=== PATIENT | female | born 1965 | race Caucasian/White ===

== ENCOUNTER 2017-01-10 13:31 | Inpatient (IN) | payer MEDICARE, MEDICAID ==
[~2017-01-10] VITALS: Ht 160 cm; Wt 77.6 kg
[2017-01-10] MEDS ORDERED: ZOLP5 PO (13:41)
[2017-01-10] MEDS ORDERED: BUPR75 PO (13:41)
[2017-01-10] MEDS ORDERED: ALPR0.5T8 PO (13:41)
[2017-01-10] MEDS ORDERED: ADDE10 PO (13:41)
[2017-01-10] MEDS ORDERED: CLON1 PO (13:41)
[2017-01-10] MEDS ORDERED: FluPHENAZine HCL 2.5 MG/ML INJ IM ONE (14:00)
[2017-01-10] MEDS ORDERED: DiphenhydrAMINE HCL 50 MG/ML VIAL IM ONE (14:00)
[2017-01-10] MEDS ORDERED: LORazepam 2 MG/ML VIAL IM ONE (14:00)
[2017-01-10] MEDS ORDERED: ACETAMINOPHEN 325 MG TABLET PO PRN (15:00)
[2017-01-10] MEDS ORDERED: MAG HYDROX/AL HYDROX/SIMETH ES 30 ML SUSPENSION UDCUP PO PRN (15:00)
[2017-01-10] MEDS ORDERED: PROMETHAZINE HCL 25 MG TABLET PO PRN (15:00)
[2017-01-10] MEDS ORDERED: MAGNESIUM HYDROXIDE SUSPENSION 30 ML UDCUP PO PRN (15:00)
[2017-01-10] MEDS ORDERED: TUBERCULIN, PURIFIED PROTEIN DERIVATIVE 5 TU/0.1 ML SYG ID ONE (15:00)
[2017-01-10] MEDS ORDERED: GuaiFENesin/D-METHORPHAN [SUGAR-FREE] 200-20MG/10 ML SYRUP UDCUP PO PRN (15:00)
[2017-01-10] MEDS ORDERED: LOPERAMIDE HCL 2 MG CAPSULE PO PRN (15:00)
[2017-01-10] MEDS ORDERED: ZOLPIDEM TARTRATE 10 MG TABLET PO PRN (15:00)
[2017-01-10 16:19] LABS: APPEARANCE,URINE CLOUDY (CLEAR); GLUCOSE, URINE (UA) NEGATIVE (NEGATIVE); KETONES,URINE NEGATIVE (NEGATIVE); LEUKOCYTE ESTERASE ,URINE NEGATIVE (NEGATIVE); OCCULT BLOOD,URINE NEGATIVE (NEGATIVE); PH,URINE 5.5 (5.0-8.0); PROTEIN,URINE NEGATIVE (NEGATIVE)
[2017-01-10 16:20] LABS: ADD UA MICROSCOPIC NO
[2017-01-10] MEDS: THIAMINE HCL 100 MG TABLET PO SCH (17:27)
[2017-01-10 17:37] VITALS: BP 116/91
[2017-01-10] MEDS ORDERED: IBUPROFEN 600 MG TABLET PO PRN (18:30)
[2017-01-10] MEDS ORDERED: INFLUENZA VIRUS VACCINE QVS 2017-18 (3YR+)/PF 60 MCG/0.5 ML SYRINGE IM ONE (19:00)
[2017-01-10] MEDS: OLANZapine 5 MG RAPDIS TABLET PO SCH (21:03)
[2017-01-11] MEDS: MULTIVITAMINS WITH MINERALS, THERAPEUTIC TABLET PO SCH (08:34)
[2017-01-11] MEDS: NICOTINE 21 MG/24 HOUR PATCH TD SCH (08:34)
[2017-01-11] MEDS: FOLIC ACID 1 MG TABLET PO SCH (08:34)
[2017-01-11] MEDS: THIAMINE HCL 100 MG TABLET PO SCH ×2 (08:34→16:21)
[2017-01-11] MEDS: LORazepam 2 MG TABLET PO PRN (10:06)
[2017-01-11] MEDS ORDERED: NICOTINE 21 MG/24 HOUR PATCH TD SCH (10:30)
[2017-01-11 17:33] VITALS: BP 165/103
[2017-01-11] MEDS ORDERED: CloNIDine HCL 0.1 MG TABLET PO ONE (17:45)
[2017-01-11 18:35] VITALS: BP 119/77
[2017-01-11] MEDS: OLANZapine 5 MG RAPDIS TABLET PO SCH (20:15)
[2017-01-12 06:35] VITALS: BP 138/91
[2017-01-12] MEDS: LORazepam 2 MG TABLET PO PRN ×2 (06:59→12:10)
[2017-01-12 08:41] LABS: BASOPHILS % (AUTO) 0.5 % (0.0-2.0); HEMATOCRIT 42.4 % (36-46); HEMOGLOBIN 14.3 g/dL (12.0-16.0); LYMPHOCYTES # (AUTO) 1.8 K/uL (1.0-4.8); MEAN CORPUSCULAR HEMOGLOBIN 30.1 pg (26.0-34.0); MEAN CORPUSCULAR HGB CONC 33.7 G/dL (31.0-37.0); MEAN CORPUSCULAR VOLUME 89 fL (80-100); MONOCYTES # (AUTO) 0.3 K/uL (0.1-1.0); MONOCYTES % (AUTO) 5.9 % (2.0-9.0); NEUTROPHILS # (AUTO) 2.8 K/uL (1.8-7.7); NEUTROPHILS % (AUTO) 56.6 % (40.0-70.0); PLATELET COUNT (AUTO) 259 K/uL (150-450); RED BLOOD CELL COUNT(AUTO) 4.75 MIL/uL (4.00-5.20); RED CELL DISTRIBUTION WIDTH 14.4 % (11.5-14.5)
[2017-01-12 08:54] LABS: HEMOGLOBIN A1C 5.8 % (4.5-6.2)
[2017-01-12] MEDS: FOLIC ACID 1 MG TABLET PO SCH ×2 (09:00→11:54)
[2017-01-12] MEDS: NICOTINE 21 MG/24 HOUR PATCH TD SCH ×2 (09:00→10:15)
[2017-01-12] MEDS: THIAMINE HCL 100 MG TABLET PO SCH ×3 (09:00→16:05)
[2017-01-12] MEDS: MULTIVITAMINS WITH MINERALS, THERAPEUTIC TABLET PO SCH ×2 (09:00→11:55)
[2017-01-12] MEDS: CloNIDine HCL 0.1 MG TABLET PO SCH ×3 (09:00→16:53)
[2017-01-12 09:21] LABS: ALANINE AMINOTRANSFERASE 35 U/L (12-78); ALBUMIN 3.4 g/dL (3.4-5.0); ANION GAP 4 mmol/L (8-16); ASPARTATE AMINOTRANSFERASE 24 U/L (15-37); BILIRUBIN,TOTAL 0.4 mg/dL (0.1-1.0); CALCIUM, TOTAL 8.7 mg/dL (8.8-10.5); CARBON DIOXIDE 33 mmol/L (22-29); CHLORIDE 102 mmol/L (98-107); CHOL/HDL RATIO 3.3 (3.9-5.7); CREATININE 0.66 mg/dL (0.60-1.30); GLOMERULAR FILTR. RATE CALC > 60 mL/min (>60); POTASSIUM 3.7 mmol/L (3.5-5.1); SODIUM SERUM 139 mmol/L (136-145); THYROID STIMULATING HORMONE 1.18 uIU/mL (0.36-3.74); TOTAL PROTEIN, SERUM 6.9 g/dL (6.4-8.2); UREA NITROGEN, BLOOD 12 mg/dL (7-18)
[2017-01-12 11:30] VITALS: BP 128/74
[2017-01-12] MEDS: ARIPiprazole 10 MG TABLET PO SCH (11:46)
[2017-01-12 16:52] VITALS: BP 114/81
[2017-01-12 20:20] VITALS: BP 100/58
[2017-01-12] MEDS: PRAZOSIN HCL 1 MG CAPSULE PO SCH (20:20)
[2017-01-13 07:08] VITALS: BP 112/70
[2017-01-13] MEDS: CloNIDine HCL 0.1 MG TABLET PO SCH ×2 (08:20→16:12)
[2017-01-13] MEDS: ARIPiprazole 10 MG TABLET PO SCH (08:20)
[2017-01-13] MEDS: MULTIVITAMINS WITH MINERALS, THERAPEUTIC TABLET PO SCH (08:20)
[2017-01-13] MEDS: FOLIC ACID 1 MG TABLET PO SCH (08:20)
[2017-01-13] MEDS: HydrOXYzine PAMOATE 50 MG CAPSULE PO PRN (08:20)
[2017-01-13] MEDS: THIAMINE HCL 100 MG TABLET PO SCH ×2 (08:21→16:12)
[2017-01-13] MEDS: LORazepam 2 MG TABLET PO PRN (08:21)
[2017-01-13] MEDS: NICOTINE 21 MG/24 HOUR PATCH TD SCH (08:21)
[2017-01-13 08:26] VITALS: BP 130/87
[2017-01-13 16:10] VITALS: BP 109/64
[2017-01-13] MEDS: PRAZOSIN HCL 1 MG CAPSULE PO SCH (20:40)
[2017-01-14] MEDS: CloNIDine HCL 0.1 MG TABLET PO SCH (09:36)
[2017-01-14] MEDS: ARIPiprazole 10 MG TABLET PO SCH (09:36)
[2017-01-14] MEDS: NICOTINE 21 MG/24 HOUR PATCH TD SCH (09:37)
[2017-01-14] MEDS: THIAMINE HCL 100 MG TABLET PO SCH ×2 (09:37→17:03)
[2017-01-14] MEDS: FOLIC ACID 1 MG TABLET PO SCH (09:37)
[2017-01-14] MEDS: MULTIVITAMINS WITH MINERALS, THERAPEUTIC TABLET PO SCH (09:37)
[2017-01-14] MEDS: LORazepam 2 MG TABLET PO PRN (12:35)
[2017-01-14] MEDS: HydrOXYzine PAMOATE 50 MG CAPSULE PO PRN (12:35)
[2017-01-14 16:08] VITALS: BP 109/60
[2017-01-14 20:41] VITALS: BP 117/63
[2017-01-14] MEDS: PRAZOSIN HCL 1 MG CAPSULE PO SCH (20:42)
[2017-01-15] MEDS: HydrOXYzine PAMOATE 50 MG CAPSULE PO PRN (08:06)
[2017-01-15] MEDS: NICOTINE 21 MG/24 HOUR PATCH TD SCH (08:06)
[2017-01-15] MEDS: MULTIVITAMINS WITH MINERALS, THERAPEUTIC TABLET PO SCH (08:06)
[2017-01-15] MEDS: ARIPiprazole 10 MG TABLET PO SCH (08:06)
[2017-01-15] MEDS: LORazepam 2 MG TABLET PO PRN ×2 (08:06→16:22)
[2017-01-15] MEDS: FOLIC ACID 1 MG TABLET PO SCH (08:06)
[2017-01-15] MEDS: THIAMINE HCL 100 MG TABLET PO SCH ×2 (08:06→16:22)
[2017-01-15 09:00] VITALS: BP 118/78
[2017-01-15 16:00] VITALS: BP 108/71
[2017-01-15] MEDS: PRAZOSIN HCL 1 MG CAPSULE PO SCH (20:25)
[2017-01-16 07:24] VITALS: BP 110/70
[2017-01-16] MEDS: THIAMINE HCL 100 MG TABLET PO SCH ×2 (08:27→16:11)
[2017-01-16] MEDS: FOLIC ACID 1 MG TABLET PO SCH (08:27)
[2017-01-16] MEDS: MULTIVITAMINS WITH MINERALS, THERAPEUTIC TABLET PO SCH (08:27)
[2017-01-16] MEDS: ARIPiprazole 10 MG TABLET PO SCH (08:27)
[2017-01-16] MEDS: OLANZapine 5 MG RAPDIS TABLET PO PRN (08:27)
[2017-01-16] MEDS: NICOTINE 21 MG/24 HOUR PATCH TD SCH (08:27)
[2017-01-16] MEDS: LORazepam 2 MG TABLET PO PRN (08:27)
[2017-01-16 09:44] VITALS: BP 110/70
[2017-01-16 16:44] VITALS: BP 100/71
[2017-01-16 19:54] VITALS: BP 113/69
[2017-01-16] MEDS: PRAZOSIN HCL 1 MG CAPSULE PO SCH (20:03)
[2017-01-17 08:51] VITALS: BP 120/80
[2017-01-17] MEDS ORDERED: ZIPRASIDONE MESYLATE 20 MG/VIAL IM ONE ×2 (10:31→11:00)
[2017-01-17] MEDS ORDERED: DiphenhydrAMINE HCL 50 MG/ML VIAL ONE (10:31)
[2017-01-17] MEDS ORDERED: LORazepam 2 MG/ML VIAL ONE ×2 (10:32→10:41)
[2017-01-17] MEDS: ARIPiprazole 10 MG TABLET PO SCH (10:48)
[2017-01-17] MEDS: FOLIC ACID 1 MG TABLET PO SCH (10:48)
[2017-01-17] MEDS: MULTIVITAMINS WITH MINERALS, THERAPEUTIC TABLET PO SCH (10:48)
[2017-01-17] MEDS: THIAMINE HCL 100 MG TABLET PO SCH ×2 (10:48→17:09)
[2017-01-17] MEDS: NICOTINE 21 MG/24 HOUR PATCH TD SCH (10:49)
[2017-01-17] MEDS ORDERED: DiphenhydrAMINE HCL 50 MG/ML VIAL IM ONE (11:00)
[2017-01-17] MEDS ORDERED: LORazepam 2 MG/ML VIAL IM ONE (11:00)
[2017-01-17 11:30] VITALS: BP 129/78
[2017-01-17 16:34] VITALS: BP 105/70
[2017-01-17] MEDS: LORazepam 2 MG TABLET PO PRN (17:09)
[2017-01-17] MEDS: OLANZapine 5 MG RAPDIS TABLET PO PRN (17:09)
[2017-01-17 20:35] VITALS: BP 110/71
[2017-01-17] MEDS: PRAZOSIN HCL 1 MG CAPSULE PO SCH (20:36)
[2017-01-18 08:24] VITALS: BP 128/95
[2017-01-18] MEDS: FOLIC ACID 1 MG TABLET PO SCH (08:45)
[2017-01-18] MEDS: NICOTINE 21 MG/24 HOUR PATCH TD SCH (08:45)
[2017-01-18] MEDS: ARIPiprazole 10 MG TABLET PO SCH (08:45)
[2017-01-18] MEDS: THIAMINE HCL 100 MG TABLET PO SCH ×2 (08:45→17:05)
[2017-01-18] MEDS: MULTIVITAMINS WITH MINERALS, THERAPEUTIC TABLET PO SCH (08:46)
[2017-01-18 16:35] VITALS: BP 118/69
[2017-01-18] MEDS: LORazepam 2 MG TABLET PO PRN (17:05)
[2017-01-18] MEDS: OLANZapine 5 MG RAPDIS TABLET PO PRN (17:05)
[2017-01-18] MEDS: PRAZOSIN HCL 1 MG CAPSULE PO SCH (21:29)
[2017-01-19 06:11] VITALS: BP 117/68
[2017-01-19 08:25] VITALS: BP 108/69
[2017-01-19] MEDS: THIAMINE HCL 100 MG TABLET PO SCH ×2 (09:08→16:23)
[2017-01-19] MEDS: FOLIC ACID 1 MG TABLET PO SCH (09:08)
[2017-01-19] MEDS: MULTIVITAMINS WITH MINERALS, THERAPEUTIC TABLET PO SCH (09:08)
[2017-01-19] MEDS: ARIPiprazole 10 MG TABLET PO SCH (09:08)
[2017-01-19] MEDS: NICOTINE 21 MG/24 HOUR PATCH TD SCH (09:15)
[2017-01-19 16:33] VITALS: BP 107/71
[2017-01-19 20:09] VITALS: BP 121/76
[2017-01-19] MEDS: PRAZOSIN HCL 1 MG CAPSULE PO SCH (20:26)
[2017-01-20 08:30] VITALS: BP 120/72
[2017-01-20] MEDS: FOLIC ACID 1 MG TABLET PO SCH (08:33)
[2017-01-20] MEDS: ARIPiprazole 10 MG TABLET PO SCH (08:33)
[2017-01-20] MEDS: NICOTINE 21 MG/24 HOUR PATCH TD SCH (08:33)
[2017-01-20] MEDS: THIAMINE HCL 100 MG TABLET PO SCH (08:33)
[2017-01-20] MEDS: MULTIVITAMINS WITH MINERALS, THERAPEUTIC TABLET PO SCH (08:33)
[2017-01-20] MEDS ORDERED: TUBERCULIN, PURIFIED PROTEIN DERIVATIVE 5 TU/0.1 ML SYG ID ONE (14:30)
[2017-01-20 16:26] VITALS: BP 107/68
[2017-01-20 20:22] VITALS: BP 105/70
[2017-01-20] MEDS: PRAZOSIN HCL 1 MG CAPSULE PO SCH (20:23)
[2017-01-21] MEDS: MULTIVITAMINS WITH MINERALS, THERAPEUTIC TABLET PO SCH (08:26)
[2017-01-21] MEDS: ARIPiprazole 10 MG TABLET PO SCH (08:26)
[2017-01-21] MEDS: NICOTINE 21 MG/24 HOUR PATCH TD SCH (08:29)
[2017-01-21 09:14] VITALS: BP 134/54
[2017-01-21] MEDS ORDERED: ARIP10TA8 PO (10:04)
[2017-01-21] MEDS ORDERED: PRAZ1 PO (10:04)
== END 2017-01-21 10:45 | disposition home or self-care (01) | DRG 885 ==
LOC: EMS 13:33 → B3A 15:10
PROVIDERS: ADMIT Psychiatry & Neurology Psychiatry
DX: F25.1 Schizoaffective disorder, depressive type (principal); Z59.0 Homelessness; F17.200 Nicotine dependence, unspecified, uncomplicated; F60.9 Personality disorder, unspecified; Z28.21 Immunization not carried out because of patient refusal; F43.10 Post-traumatic stress disorder, unspecified; F90.9 Attention-deficit hyperactivity disorder, unspecified type; Z65.3 Problems related to other legal circumstances; Z68.28 Body mass index [BMI] 28.0-28.9, adult; Z91.19 Patient's noncompliance with other medical treatment and regimen; F41.9 Anxiety disorder, unspecified; Z88.8 Allergy status to other drugs, medicaments and biological substances
CPT/HCPCS: 80307; 83036; 84439; 84443; 86592; 96372; 99285; J1200; J2060; J3486; J3490

== ENCOUNTER 2017-01-22 16:56 | Inpatient (IN) | payer MEDICARE, MEDICAID ==
[~2017-01-22] VITALS: Ht 157.5 cm; Wt 79.4 kg
[~2017-01-22 16:56] MED LIST: ARIP10TA8 PO; PRAZ1 PO
[2017-01-22] MEDS ORDERED: LORazepam 2 MG/ML VIAL IM ONE ×2 (17:15→19:45)
[2017-01-22] MEDS ORDERED: DiphenhydrAMINE HCL 50 MG/ML VIAL IM ONE ×2 (17:15→19:45)
[2017-01-22 17:39] LABS: BASOPHILS % (AUTO) 0.1 % (0.0-2.0); EOSINOPHILS % (AUTO) 2.4 % (1.0-6.0); HEMATOCRIT 41.2 % (36-46); HEMOGLOBIN 14.3 g/dL (12.0-16.0); LYMPHOCYTES # (AUTO) 3.6 K/uL (1.0-4.8); LYMPHOCYTES % (AUTO) 33.4 % (22.0-44.0); MEAN CORPUSCULAR HEMOGLOBIN 30.5 pg (26.0-34.0); MEAN CORPUSCULAR HGB CONC 34.8 G/dL (31.0-37.0); MEAN CORPUSCULAR VOLUME 88 fL (80-100); MONOCYTES # (AUTO) 0.5 K/uL (0.1-1.0); MONOCYTES % (AUTO) 4.5 % (2.0-9.0); NEUTROPHILS # (AUTO) 6.4 K/uL (1.8-7.7); NEUTROPHILS % (AUTO) 59.6 % (40.0-70.0); PLATELET COUNT (AUTO) 303 K/uL (150-450); RED BLOOD CELL COUNT(AUTO) 4.71 MIL/uL (4.00-5.20); WHITE BLOOD COUNT (AUTO) 10.8 K/uL (4.5-11.0)
[2017-01-22 18:05] LABS: ANION GAP 6 mmol/L (8-16); CALCIUM, TOTAL 9.2 mg/dL (8.8-10.5); CARBON DIOXIDE 30 mmol/L (22-29); CHLORIDE 101 mmol/L (98-107); CREATININE 0.76 mg/dL (0.60-1.30); GLOMERULAR FILTR. RATE CALC > 60 mL/min (>60); POTASSIUM 3.5 mmol/L (3.5-5.1); SODIUM SERUM 137 mmol/L (136-145); UREA NITROGEN, BLOOD 9 mg/dL (7-18)
[2017-01-22 18:11] LABS: ALANINE AMINOTRANSFERASE 25 U/L (12-78); ALBUMIN 3.9 g/dL (3.4-5.0); ASPARTATE AMINOTRANSFERASE 16 U/L (15-37); BILIRUBIN,TOTAL 0.4 mg/dL (0.1-1.0); TOTAL PROTEIN, SERUM 7.8 g/dL (6.4-8.2)
[2017-01-22] MEDS ORDERED: HALOPERIDOL 5 MG TABLET PO PRN (21:45)
[2017-01-22] MEDS ORDERED: ZIPRASIDONE MESYLATE 20 MG/VIAL IM ONE (21:45)
[2017-01-23 00:10] VITALS: BP 117/68
[2017-01-23] MEDS ORDERED: PNEUMOCOCCAL VACCINE POLYVALENT 0.5 ML VIAL [PPSV23] IM ONE (01:00)
[2017-01-23] MEDS ORDERED: INFLUENZA VIRUS VACCINE QVS 2017-18 (3YR+)/PF 60 MCG/0.5 ML SYRINGE IM ONE (01:00)
[2017-01-23] MEDS: LORazepam 2 MG TABLET PO PRN ×2 (05:30→15:54)
[2017-01-23 08:25] VITALS: BP 162/78
[2017-01-23] MEDS ORDERED: DiphenhydrAMINE HCL 50 MG/ML VIAL ONE (09:14)
[2017-01-23] MEDS ORDERED: LORazepam 2 MG/ML VIAL ONE (09:14)
[2017-01-23] MEDS ORDERED: DiphenhydrAMINE HCL 50 MG/ML VIAL IM ONE (09:30)
[2017-01-23] MEDS ORDERED: ZIPRASIDONE MESYLATE 20 MG/VIAL IM ONE (09:30)
[2017-01-23] MEDS ORDERED: LORazepam 2 MG/ML VIAL IM ONE (09:30)
[2017-01-23 10:00] VITALS: BP 122/76
[2017-01-23 16:05] VITALS: BP 107/60
[2017-01-23] MEDS: OLANZapine 7.5 MG TABLET PO SCH (21:08)
[2017-01-24 00:21] VITALS: BP 125/71
[2017-01-24] MEDS: ZOLPIDEM TARTRATE 10 MG TABLET PO PRN (00:22)
[2017-01-24] MEDS ORDERED: ZIPRASIDONE MESYLATE 20 MG/VIAL IM ONE ×3 (07:35→12:30)
[2017-01-24] MEDS ORDERED: LORazepam 2 MG/ML VIAL ONE (07:36)
[2017-01-24] MEDS ORDERED: DiphenhydrAMINE HCL 50 MG/ML VIAL ONE (07:36)
[2017-01-24] MEDS ORDERED: LORazepam 2 MG/ML VIAL IM ONE ×2 (07:45→12:30)
[2017-01-24] MEDS ORDERED: DiphenhydrAMINE HCL 50 MG/ML VIAL IM ONE ×2 (07:45→12:30)
[2017-01-24 08:08] LABS: CHOL/HDL RATIO 4.1 (3.9-5.7)
[2017-01-24] MEDS: OLANZapine 5 MG TABLET PO SCH (08:32)
[2017-01-24] MEDS: NICOTINE 21 MG/24 HOUR PATCH TD SCH (10:10)
[2017-01-24] MEDS: QUEtiapine FUMARATE 25 MG TABLET PO PRN (16:33)
[2017-01-24] MEDS: LORazepam 2 MG TABLET PO PRN (16:33)
[2017-01-24 20:17] VITALS: BP 118/73
[2017-01-24] MEDS: OLANZapine 7.5 MG TABLET PO SCH (20:18)
[2017-01-24] MEDS: PRAZOSIN HCL 1 MG CAPSULE PO SCH (20:19)
[2017-01-25 07:08] VITALS: BP 110/68
[2017-01-25 08:00] VITALS: BP 134/72
[2017-01-25] MEDS: OLANZapine 5 MG TABLET PO SCH (09:01)
[2017-01-25] MEDS: NICOTINE 21 MG/24 HOUR PATCH TD SCH (09:01)
[2017-01-25 16:02] VITALS: BP 119/72
[2017-01-25] MEDS: OLANZapine 7.5 MG TABLET PO SCH (20:38)
[2017-01-25] MEDS: PRAZOSIN HCL 1 MG CAPSULE PO SCH (20:38)
[2017-01-26 02:00] VITALS: BP 118/69
[2017-01-26] MEDS: ZOLPIDEM TARTRATE 10 MG TABLET PO PRN (02:07)
[2017-01-26 08:36] VITALS: BP 134/80
[2017-01-26] MEDS: NICOTINE 21 MG/24 HOUR PATCH TD SCH (09:13)
[2017-01-26] MEDS: LORazepam 2 MG TABLET PO PRN ×2 (09:13→16:09)
[2017-01-26] MEDS: OLANZapine 5 MG TABLET PO SCH (09:14)
[2017-01-26 16:10] VITALS: BP 113/65
[2017-01-26] MEDS: QUEtiapine FUMARATE 25 MG TABLET PO PRN (16:49)
[2017-01-26] MEDS: OLANZapine 7.5 MG TABLET PO SCH (20:29)
[2017-01-26 20:30] VITALS: BP 115/72
[2017-01-26] MEDS: PRAZOSIN HCL 1 MG CAPSULE PO SCH (20:34)
[2017-01-27 07:25] VITALS: BP 120/72
[2017-01-27] MEDS: OLANZapine 5 MG TABLET PO SCH (09:01)
[2017-01-27] MEDS: LORazepam 2 MG TABLET PO PRN (09:01)
[2017-01-27] MEDS: NICOTINE 21 MG/24 HOUR PATCH TD SCH (09:02)
[2017-01-27 16:13] VITALS: BP 106/68
[2017-01-27 20:21] VITALS: BP 113/80
[2017-01-27] MEDS: OLANZapine 7.5 MG TABLET PO SCH (20:22)
[2017-01-27] MEDS: PRAZOSIN HCL 1 MG CAPSULE PO SCH (20:22)
[2017-01-28 07:00] VITALS: BP 110/72
[2017-01-28] MEDS ORDERED: OLAN10TA3 PO (08:25)
[2017-01-28] MEDS ORDERED: OLAN5TAB2 PO (08:25)
[2017-01-28 08:41] VITALS: BP 104/52
[2017-01-28] MEDS: OLANZapine 5 MG TABLET PO SCH (08:49)
[2017-01-28] MEDS: NICOTINE 21 MG/24 HOUR PATCH TD SCH (08:50)
[2017-01-28] MEDS ORDERED: OLANZapine 5 MG TABLET PO SCH (09:00)
[2017-01-28] MEDS ORDERED: OLANZapine 7.5 MG TABLET PO SCH (21:00)
[2017-01-28] MEDS ORDERED: PRAZOSIN HCL 1 MG CAPSULE PO SCH (21:00)
== END 2017-01-28 13:15 | disposition home or self-care (01) | DRG 885 ==
LOC: EMS 16:59 → B3A 23:05
PROVIDERS: ADMIT Psychiatry & Neurology Child & Adolescent Psychiatry
DX: F25.1 Schizoaffective disorder, depressive type (principal); F12.10 Cannabis abuse, uncomplicated; F17.200 Nicotine dependence, unspecified, uncomplicated; F43.10 Post-traumatic stress disorder, unspecified; F98.8 Other specified behavioral and emotional disorders with onset usually occurring in childhood and adolescence; Z88.1 Allergy status to other antibiotic agents; Z88.8 Allergy status to other drugs, medicaments and biological substances; F60.3 Borderline personality disorder; Z28.21 Immunization not carried out because of patient refusal
CPT/HCPCS: 87081; 96372; 99285; G0480; J1200; J2060; J3486

== ENCOUNTER 2017-01-30 09:34 | Inpatient (IN) | payer MEDICARE, MEDICAID ==
[~2017-01-30] VITALS: Ht 160 cm; Wt 78.5 kg
[~2017-01-30 09:34] MED LIST changes: -ARIP10TA8 PO; +OLAN10TA3 PO; +OLAN5TAB2 PO
[2017-01-30 10:14] LABS: BASOPHILS % (AUTO) 0.4 % (0.0-2.0); EOSINOPHILS % (AUTO) 0.4 % (1.0-6.0); HEMATOCRIT 40.2 % (36-46); HEMOGLOBIN 13.8 g/dL (12.0-16.0); LYMPHOCYTES # (AUTO) 2.7 K/uL (1.0-4.8); LYMPHOCYTES % (AUTO) 35.5 % (22.0-44.0); MEAN CORPUSCULAR HEMOGLOBIN 30.3 pg (26.0-34.0); MEAN CORPUSCULAR HGB CONC 34.4 G/dL (31.0-37.0); MEAN CORPUSCULAR VOLUME 88 fL (80-100); MONOCYTES # (AUTO) 0.4 K/uL (0.1-1.0); MONOCYTES % (AUTO) 5.6 % (2.0-9.0); NEUTROPHILS # (AUTO) 4.4 K/uL (1.8-7.7); NEUTROPHILS % (AUTO) 58.1 % (40.0-70.0); PLATELET COUNT (AUTO) 282 K/uL (150-450); RED BLOOD CELL COUNT(AUTO) 4.56 MIL/uL (4.00-5.20); RED CELL DISTRIBUTION WIDTH 13.6 % (11.5-14.5); WHITE BLOOD COUNT (AUTO) 7.6 K/uL (4.5-11.0)
[2017-01-30 10:21] LABS: ANION GAP 11 mmol/L (8-16); CALCIUM, TOTAL 9.3 mg/dL (8.8-10.5); CARBON DIOXIDE 28 mmol/L (22-29); CHLORIDE 101 mmol/L (98-107); CREATININE 0.62 mg/dL (0.60-1.30); GLOMERULAR FILTR. RATE CALC > 60 mL/min (>60); POTASSIUM 3.5 mmol/L (3.5-5.1); SODIUM SERUM 140 mmol/L (136-145); UREA NITROGEN, BLOOD 16 mg/dL (7-18)
[2017-01-30 10:27] LABS: ALANINE AMINOTRANSFERASE 30 U/L (12-78); ASPARTATE AMINOTRANSFERASE 28 U/L (15-37); BILIRUBIN,TOTAL 0.8 mg/dL (0.1-1.0); TOTAL PROTEIN, SERUM 8.1 g/dL (6.4-8.2)
[2017-01-30] MEDS ORDERED: LORazepam 2 MG TABLET PO ONE (10:45)
[2017-01-30 10:50] LABS: THYROID STIMULATING HORMONE 1.99 uIU/mL (0.36-3.74)
[2017-01-30] MEDS ORDERED: OLANZapine 10 MG RAPDIS TABLET PO ONE (12:15)
[2017-01-30] MEDS ORDERED: DiphenhydrAMINE HCL 50 MG/ML VIAL IM ONE ×2 (12:30→14:00)
[2017-01-30] MEDS ORDERED: LORazepam 2 MG/ML VIAL IM ONE (14:00)
[2017-01-30] MEDS: LORazepam 2 MG TABLET PO PRN (16:30)
[2017-01-30 16:34] VITALS: BP 125/61
[2017-01-30] MEDS ORDERED: INFLUENZA VIRUS VACCINE QVS 2017-18 (3YR+)/PF 60 MCG/0.5 ML SYRINGE IM ONE (17:15)
[2017-01-30] MEDS: PRAZOSIN HCL 1 MG CAPSULE PO SCH (20:43)
[2017-01-30] MEDS: ZOLPIDEM TARTRATE 10 MG TABLET PO PRN (22:40)
[2017-01-31 05:18] VITALS: BP 102/76
[2017-01-31] MEDS: LORazepam 2 MG TABLET PO PRN (06:06)
[2017-01-31] MEDS ORDERED: PETROLATUM,WHITE 71 GM JELLY TP PRN (08:15)
[2017-01-31] MEDS ORDERED: BACITRACIN 28.4 GM OINTMENT TP PRN (08:15)
[2017-01-31] MEDS ORDERED: BENZOCAINE/MENTHOL LOZENGE MM PRN (08:15)
[2017-01-31] MEDS ORDERED: MAGNESIUM HYDROXIDE SUSPENSION 30 ML UDCUP PO PRN (08:15)
[2017-01-31] MEDS ORDERED: ALBUTEROL SULFATE HFA 90 MCG/PUFF 8 GM INHALER IH PRN (08:15)
[2017-01-31] MEDS ORDERED: ACETAMINOPHEN 325 MG TABLET PO PRN (08:15)
[2017-01-31] MEDS ORDERED: ONDANSETRON HCL 4 MG TABLET PO PRN (08:15)
[2017-01-31] MEDS ORDERED: LOPERAMIDE HCL 2 MG CAPSULE PO PRN (08:15)
[2017-01-31] MEDS ORDERED: IBUPROFEN 600 MG TABLET PO PRN (08:15)
[2017-01-31] MEDS ORDERED: MAG HYDROX/AL HYDROX/SIMETH ES 30 ML SUSPENSION UDCUP PO PRN (08:15)
[2017-01-31] MEDS ORDERED: CloNIDine HCL 0.1 MG TABLET PO PRN (08:15)
[2017-01-31] MEDS: NICOTINE 21 MG/24 HOUR PATCH TD SCH (08:16)
[2017-01-31] MEDS: OLANZapine 5 MG TABLET PO SCH (08:16)
[2017-01-31 08:24] LABS: CHOL/HDL RATIO 3.8 (3.9-5.7)
[2017-01-31] MEDS: DOCUSATE SODIUM 100 MG CAPSULE PO SCH (08:32)
[2017-01-31] MEDS: OMEPRAZOLE 20 MG CAPSULE PO SCH (08:32)
[2017-01-31 16:12] VITALS: BP 120/74
[2017-01-31] MEDS: OLANZapine 7.5 MG TABLET PO SCH (20:54)
[2017-01-31] MEDS: PRAZOSIN HCL 1 MG CAPSULE PO SCH (20:54)
[2017-01-31] MEDS: ZOLPIDEM TARTRATE 10 MG TABLET PO PRN (21:37)
[2017-02-01 06:00] VITALS: BP 117/63
[2017-02-01] MEDS: LORazepam 2 MG TABLET PO PRN ×2 (06:07→17:03)
[2017-02-01 06:14] VITALS: BP 117/63
[2017-02-01 08:18] VITALS: BP 126/81
[2017-02-01] MEDS: NICOTINE 21 MG/24 HOUR PATCH TD SCH (08:36)
[2017-02-01] MEDS: OMEPRAZOLE 20 MG CAPSULE PO SCH (08:37)
[2017-02-01] MEDS: OLANZapine 5 MG TABLET PO SCH (08:37)
[2017-02-01] MEDS: DOCUSATE SODIUM 100 MG CAPSULE PO SCH (08:37)
[2017-02-01 10:40] VITALS: BP 122/80
[2017-02-01] MEDS ORDERED: ZIPRASIDONE MESYLATE 20 MG/VIAL IM ONE (11:00)
[2017-02-01] MEDS ORDERED: DiphenhydrAMINE HCL 50 MG/ML VIAL IM ONE (11:00)
[2017-02-01] MEDS ORDERED: LORazepam 2 MG/ML VIAL IM ONE (11:00)
[2017-02-01 16:12] VITALS: BP 134/78
[2017-02-01 20:38] VITALS: BP 130/78
[2017-02-01] MEDS: PRAZOSIN HCL 1 MG CAPSULE PO SCH (20:40)
[2017-02-01] MEDS: OLANZapine 7.5 MG TABLET PO SCH (20:40)
[2017-02-02 06:17] VITALS: BP 128/81
[2017-02-02 08:43] VITALS: BP 129/81
[2017-02-02] MEDS: OMEPRAZOLE 20 MG CAPSULE PO SCH (10:01)
[2017-02-02] MEDS: DOCUSATE SODIUM 100 MG CAPSULE PO SCH (10:01)
[2017-02-02] MEDS: OLANZapine 5 MG TABLET PO SCH (10:02)
[2017-02-02] MEDS: NICOTINE 21 MG/24 HOUR PATCH TD SCH (10:07)
[2017-02-02 16:19] VITALS: BP 114/67
[2017-02-02] MEDS: OLANZapine 7.5 MG TABLET PO SCH (20:16)
[2017-02-02] MEDS: PRAZOSIN HCL 1 MG CAPSULE PO SCH (20:17)
[2017-02-03 06:06] VITALS: BP 127/82
[2017-02-03 08:28] VITALS: BP 126/81
[2017-02-03] MEDS: DOCUSATE SODIUM 100 MG CAPSULE PO SCH (08:55)
[2017-02-03] MEDS: NICOTINE 21 MG/24 HOUR PATCH TD SCH (08:55)
[2017-02-03] MEDS: OMEPRAZOLE 20 MG CAPSULE PO SCH (08:55)
[2017-02-03] MEDS: OLANZapine 5 MG TABLET PO SCH (08:55)
[2017-02-03 16:09] VITALS: BP 118/69
[2017-02-03 20:30] VITALS: BP 122/80
[2017-02-03] MEDS: OLANZapine 7.5 MG TABLET PO SCH (20:31)
[2017-02-03] MEDS: PRAZOSIN HCL 1 MG CAPSULE PO SCH (20:31)
[2017-02-04 06:33] VITALS: BP 105/61
[2017-02-04] MEDS: NICOTINE 21 MG/24 HOUR PATCH TD SCH (08:26)
[2017-02-04] MEDS: OLANZapine 5 MG TABLET PO SCH (08:26)
[2017-02-04] MEDS: DOCUSATE SODIUM 100 MG CAPSULE PO SCH (08:26)
[2017-02-04] MEDS: OMEPRAZOLE 20 MG CAPSULE PO SCH (08:26)
[2017-02-04 08:32] VITALS: BP 126/74
[2017-02-04] MEDS: LORazepam 2 MG TABLET PO PRN (16:01)
[2017-02-04 20:10] VITALS: BP 112/68
[2017-02-04] MEDS: OLANZapine 7.5 MG TABLET PO SCH (20:13)
[2017-02-04] MEDS: PRAZOSIN HCL 1 MG CAPSULE PO SCH (20:13)
[2017-02-05 06:35] VITALS: BP 107/63
[2017-02-05 08:50] VITALS: BP 100/52
[2017-02-05] MEDS: OMEPRAZOLE 20 MG CAPSULE PO SCH (08:58)
[2017-02-05] MEDS: OLANZapine 5 MG TABLET PO SCH (08:58)
[2017-02-05] MEDS: NICOTINE 21 MG/24 HOUR PATCH TD SCH (08:58)
[2017-02-05] MEDS: DOCUSATE SODIUM 100 MG CAPSULE PO SCH (08:58)
[2017-02-05 16:20] VITALS: BP 105/62
[2017-02-05] MEDS: LORazepam 2 MG TABLET PO PRN (17:15)
[2017-02-05 20:38] VITALS: BP 110/64
[2017-02-05] MEDS: OLANZapine 7.5 MG TABLET PO SCH (20:40)
[2017-02-05] MEDS: PRAZOSIN HCL 1 MG CAPSULE PO SCH (20:40)
[2017-02-06 06:29] VITALS: BP 112/75
[2017-02-06] MEDS: OMEPRAZOLE 20 MG CAPSULE PO SCH (08:54)
[2017-02-06] MEDS: DOCUSATE SODIUM 100 MG CAPSULE PO SCH (08:54)
[2017-02-06] MEDS: OLANZapine 5 MG TABLET PO SCH (08:54)
[2017-02-06] MEDS: NICOTINE 21 MG/24 HOUR PATCH TD SCH (08:55)
[2017-02-06 09:19] VITALS: BP 103/65
[2017-02-06 17:34] VITALS: BP 123/66
[2017-02-06] MEDS: PRAZOSIN HCL 1 MG CAPSULE PO SCH (20:31)
[2017-02-06] MEDS: OLANZapine 7.5 MG TABLET PO SCH (20:31)
[2017-02-07 06:30] VITALS: BP 104/64
[2017-02-07] MEDS: OLANZapine 5 MG TABLET PO SCH (08:40)
[2017-02-07] MEDS: OMEPRAZOLE 20 MG CAPSULE PO SCH (08:40)
[2017-02-07] MEDS: NICOTINE 21 MG/24 HOUR PATCH TD SCH (08:40)
[2017-02-07] MEDS: DOCUSATE SODIUM 100 MG CAPSULE PO SCH (08:40)
[2017-02-07 09:00] VITALS: BP 120/70
[2017-02-07 16:52] VITALS: BP 125/85
[2017-02-07] MEDS: OLANZapine 7.5 MG TABLET PO SCH (20:23)
[2017-02-07] MEDS: PRAZOSIN HCL 1 MG CAPSULE PO SCH (20:23)
[2017-02-08 06:00] VITALS: BP 117/63
[2017-02-08] MEDS: LORazepam 2 MG TABLET PO PRN (06:00)
[2017-02-08] MEDS ORDERED: LORazepam 2 MG/ML VIAL ONE (06:20)
[2017-02-08] MEDS ORDERED: FluPHENAZine HCL 2.5 MG/ML INJ IM ONE (06:21)
[2017-02-08] MEDS ORDERED: DiphenhydrAMINE HCL 50 MG/ML VIAL ONE (06:22)
[2017-02-08] MEDS ORDERED: DiphenhydrAMINE HCL 50 MG/ML VIAL IM ONE (07:15)
[2017-02-08] MEDS ORDERED: LORazepam 2 MG/ML VIAL IM ONE (07:15)
[2017-02-08] MEDS ORDERED: ZIPRASIDONE MESYLATE 20 MG/VIAL IM ONE (07:15)
[2017-02-08] MEDS: OMEPRAZOLE 20 MG CAPSULE PO SCH (09:17)
[2017-02-08] MEDS: OLANZapine 5 MG TABLET PO SCH (09:17)
[2017-02-08] MEDS: NICOTINE 21 MG/24 HOUR PATCH TD SCH (09:17)
[2017-02-08] MEDS: DOCUSATE SODIUM 100 MG CAPSULE PO SCH (09:17)
[2017-02-08 16:08] VITALS: BP 126/75
[2017-02-08] MEDS: PRAZOSIN HCL 1 MG CAPSULE PO SCH (20:08)
[2017-02-08] MEDS: OLANZapine 7.5 MG TABLET PO SCH (20:08)
[2017-02-09 00:01] VITALS: BP 121/63
[2017-02-09] MEDS: DOCUSATE SODIUM 100 MG CAPSULE PO SCH (08:18)
[2017-02-09] MEDS: NICOTINE 21 MG/24 HOUR PATCH TD SCH (08:18)
[2017-02-09] MEDS: OLANZapine 5 MG TABLET PO SCH (08:18)
[2017-02-09] MEDS: OMEPRAZOLE 20 MG CAPSULE PO SCH (08:19)
[2017-02-09 08:52] VITALS: BP 111/67
[2017-02-09 16:05] VITALS: BP 114/70
[2017-02-09] MEDS: PRAZOSIN HCL 1 MG CAPSULE PO SCH (20:23)
[2017-02-09] MEDS: OLANZapine 7.5 MG TABLET PO SCH (20:23)
[2017-02-10 06:25] VITALS: BP 100/64
[2017-02-10] MEDS: OLANZapine 5 MG TABLET PO SCH (08:24)
[2017-02-10] MEDS: OMEPRAZOLE 20 MG CAPSULE PO SCH (08:24)
[2017-02-10] MEDS: DOCUSATE SODIUM 100 MG CAPSULE PO SCH (08:24)
[2017-02-10] MEDS: NICOTINE 21 MG/24 HOUR PATCH TD SCH (08:26)
[2017-02-10 08:33] VITALS: BP 106/63
[2017-02-10] MEDS ORDERED: DiphenhydrAMINE HCL 50 MG/ML VIAL ONE (09:08)
[2017-02-10] MEDS ORDERED: LORazepam 2 MG/ML VIAL ONE (09:08)
[2017-02-10] MEDS ORDERED: ZIPRASIDONE MESYLATE 20 MG/VIAL IM ONE (09:15)
[2017-02-10] MEDS ORDERED: LORazepam 2 MG/ML VIAL IM ONE (09:15)
[2017-02-10] MEDS ORDERED: DiphenhydrAMINE HCL 50 MG/ML VIAL IM ONE (09:15)
[2017-02-10 10:50] VITALS: BP 113/72
[2017-02-10] MEDS ORDERED: QUEtiapine FUMARATE 100 MG TABLET PO PRN (11:00)
[2017-02-10 17:34] VITALS: BP 102/65
[2017-02-10] MEDS: OLANZapine 7.5 MG TABLET PO SCH (20:21)
[2017-02-10] MEDS: PRAZOSIN HCL 1 MG CAPSULE PO SCH (20:21)
[2017-02-11 08:09] VITALS: BP 130/83
[2017-02-11] MEDS: DOCUSATE SODIUM 100 MG CAPSULE PO SCH (08:41)
[2017-02-11] MEDS: OMEPRAZOLE 20 MG CAPSULE PO SCH (08:42)
[2017-02-11] MEDS: OLANZapine 5 MG TABLET PO SCH (08:42)
[2017-02-11] MEDS: NICOTINE 21 MG/24 HOUR PATCH TD SCH (08:42)
[2017-02-11] MEDS ORDERED: OLANZapine 5 MG TABLET PO ONE (11:45)
[2017-02-11 16:18] VITALS: BP 107/68
[2017-02-11] MEDS: OLANZapine 7.5 MG TABLET PO SCH (20:18)
[2017-02-11] MEDS: PRAZOSIN HCL 1 MG CAPSULE PO SCH (20:21)
[2017-02-12 06:37] VITALS: BP 107/62
[2017-02-12 09:00] VITALS: BP 114/72
[2017-02-12] MEDS: DOCUSATE SODIUM 100 MG CAPSULE PO SCH (09:44)
[2017-02-12] MEDS: OMEPRAZOLE 20 MG CAPSULE PO SCH (09:44)
[2017-02-12] MEDS: OLANZapine 10 MG TABLET PO SCH (09:45)
[2017-02-12] MEDS: NICOTINE 21 MG/24 HOUR PATCH TD SCH (09:45)
[2017-02-12] MEDS ORDERED: OMEP20 PO (13:29)
[2017-02-12] MEDS ORDERED: DSS100 PO (13:29)
[2017-02-12 17:14] VITALS: BP 111/63
[2017-02-12] MEDS: OLANZapine 7.5 MG TABLET PO SCH (20:21)
[2017-02-12] MEDS: PRAZOSIN HCL 1 MG CAPSULE PO SCH (20:21)
[2017-02-13 06:10] VITALS: BP 117/66
[2017-02-13 08:15] VITALS: BP 103/68
[2017-02-13] MEDS: DOCUSATE SODIUM 100 MG CAPSULE PO SCH (09:00)
[2017-02-13] MEDS: OLANZapine 10 MG TABLET PO SCH (09:08)
[2017-02-13] MEDS: NICOTINE 21 MG/24 HOUR PATCH TD SCH (09:09)
[2017-02-13] MEDS: OMEPRAZOLE 20 MG CAPSULE PO SCH (09:09)
[2017-02-13 16:28] VITALS: BP 120/62
[2017-02-13] MEDS: OLANZapine 7.5 MG TABLET PO SCH (20:15)
[2017-02-13] MEDS: PRAZOSIN HCL 1 MG CAPSULE PO SCH (20:15)
[2017-02-14] MEDS: ZOLPIDEM TARTRATE 10 MG TABLET PO PRN (01:48)
[2017-02-14] MEDS: LORazepam 2 MG TABLET PO PRN (01:48)
[2017-02-14 05:20] VITALS: BP 124/76
[2017-02-14 08:37] VITALS: BP 104/63
[2017-02-14] MEDS: DOCUSATE SODIUM 100 MG CAPSULE PO SCH (09:00)
[2017-02-14] MEDS: OLANZapine 10 MG TABLET PO SCH (09:03)
[2017-02-14] MEDS: OMEPRAZOLE 20 MG CAPSULE PO SCH (09:03)
[2017-02-14] MEDS: NICOTINE 21 MG/24 HOUR PATCH TD SCH (09:04)
[2017-02-14 16:44] VITALS: BP 108/70
[2017-02-14 20:35] VITALS: BP 112/75
[2017-02-14] MEDS: OLANZapine 7.5 MG TABLET PO SCH (20:37)
[2017-02-14] MEDS: PRAZOSIN HCL 1 MG CAPSULE PO SCH (20:37)
[2017-02-15] MEDS: DOCUSATE SODIUM 100 MG CAPSULE PO SCH ×2 (08:36→08:50)
[2017-02-15] MEDS: OMEPRAZOLE 20 MG CAPSULE PO SCH (08:36)
[2017-02-15] MEDS: NICOTINE 21 MG/24 HOUR PATCH TD SCH (08:36)
[2017-02-15] MEDS: OLANZapine 10 MG TABLET PO SCH (08:36)
[2017-02-15 08:45] VITALS: BP 103/62
[2017-02-15 16:30] VITALS: BP 107/61
[2017-02-15] MEDS: LORazepam 2 MG TABLET PO PRN (17:19)
[2017-02-15] MEDS: PRAZOSIN HCL 1 MG CAPSULE PO SCH (20:38)
[2017-02-15] MEDS: OLANZapine 7.5 MG TABLET PO SCH (20:39)
[2017-02-16 08:25] VITALS: BP 91/55
[2017-02-16] MEDS: NICOTINE 21 MG/24 HOUR PATCH TD SCH (08:49)
[2017-02-16] MEDS: OMEPRAZOLE 20 MG CAPSULE PO SCH (08:49)
[2017-02-16] MEDS: OLANZapine 10 MG TABLET PO SCH (08:49)
[2017-02-16] MEDS: DOCUSATE SODIUM 100 MG CAPSULE PO SCH (08:58)
== END 2017-02-16 13:05 | disposition home or self-care (01) | DRG 885 ==
LOC: EMS 09:34 → B3A 14:13
PROVIDERS: ADMIT Psychiatry & Neurology Psychiatry
DX: F25.0 Schizoaffective disorder, bipolar type (principal); Z91.14 Patient's other noncompliance with medication regimen; F11.10 Opioid abuse, uncomplicated; F12.90 Cannabis use, unspecified, uncomplicated; F41.9 Anxiety disorder, unspecified; F17.210 Nicotine dependence, cigarettes, uncomplicated; F15.10 Other stimulant abuse, uncomplicated; F43.12 Post-traumatic stress disorder, chronic; J44.9 Chronic obstructive pulmonary disease, unspecified; K59.00 Constipation, unspecified; G47.00 Insomnia, unspecified; M54.5 Low back pain; K21.9 Gastro-esophageal reflux disease without esophagitis; Z88.8 Allergy status to other drugs, medicaments and biological substances; Z79.899 Other long term (current) drug therapy; Z71.51 Drug abuse counseling and surveillance of drug abuser; Z71.6 Tobacco abuse counseling; Z28.21 Immunization not carried out because of patient refusal
CPT/HCPCS: 84443; 87081; 96372; 99285; 99406; G0480; J1200; J2060; J3486; J3490

== ENCOUNTER 2017-04-26 09:46 | Inpatient (IN) | payer MEDICARE, MEDICAID ==
[~2017-04-26] VITALS: Ht 160 cm; Wt 80.6 kg
[~2017-04-26 09:46] MED LIST changes: +DSS100 PO; +OMEP20 PO
[2017-04-26 16:31] VITALS: BP 133/75
[2017-04-26] MEDS ORDERED: PNEUMOCOCCAL VACCINE POLYVALENT 0.5 ML VIAL [PPSV23] IM ONE (16:45)
[2017-04-26] MEDS ORDERED: INFLUENZA VIRUS VACCINE QVS 2017-18 (3YR+)/PF 60 MCG/0.5 ML SYRINGE IM ONE (16:45)
[2017-04-26] MEDS: LORazepam 2 MG TABLET PO PRN (16:53)
[2017-04-26] MEDS: OLANZapine 10 MG TABLET PO SCH (21:00)
[2017-04-27 06:06] VITALS: BP 131/92
[2017-04-27] MEDS: LORazepam 2 MG TABLET PO PRN ×2 (06:24→17:13)
[2017-04-27] MEDS ORDERED: ZIPRASIDONE MESYLATE 20 MG/VIAL IM ONE ×2 (07:15→15:30)
[2017-04-27] MEDS ORDERED: LORazepam 2 MG/ML VIAL IM ONE ×2 (07:15→15:30)
[2017-04-27] MEDS ORDERED: DiphenhydrAMINE HCL 50 MG/ML VIAL IM ONE ×2 (07:15→15:30)
[2017-04-27] MEDS ORDERED: DiphenhydrAMINE HCL 50 MG/ML VIAL ONE (07:21)
[2017-04-27] MEDS ORDERED: LORazepam 2 MG/ML VIAL ONE (07:21)
[2017-04-27] MEDS ORDERED: MAGNESIUM HYDROXIDE SUSPENSION 30 ML UDCUP PO PRN (08:15)
[2017-04-27] MEDS ORDERED: ALBUTEROL SULFATE HFA 90 MCG/PUFF 8 GM INHALER IH PRN (08:15)
[2017-04-27] MEDS ORDERED: ACETAMINOPHEN 325 MG TABLET PO PRN (08:15)
[2017-04-27] MEDS ORDERED: BENZOCAINE/MENTHOL LOZENGE MM PRN (08:15)
[2017-04-27] MEDS ORDERED: CloNIDine HCL 0.1 MG TABLET PO PRN (08:15)
[2017-04-27] MEDS ORDERED: ONDANSETRON HCL 4 MG TABLET PO PRN (08:15)
[2017-04-27] MEDS ORDERED: PETROLATUM,WHITE 71 GM JELLY TP PRN (08:15)
[2017-04-27] MEDS ORDERED: BACITRACIN 28.4 GM OINTMENT TP PRN (08:15)
[2017-04-27 08:20] LABS: BASOPHILS % (AUTO) 0.5 % (0.0-2.0); EOSINOPHILS % (AUTO) 1.7 % (1.0-6.0); HEMATOCRIT 38.5 % (36-46); HEMOGLOBIN 13.3 g/dL (12.0-16.0); LYMPHOCYTES # (AUTO) 1.4 K/uL (1.0-4.8); LYMPHOCYTES % (AUTO) 30.8 % (22.0-44.0); MEAN CORPUSCULAR HEMOGLOBIN 29.5 pg (26.0-34.0); MEAN CORPUSCULAR HGB CONC 34.5 G/dL (31.0-37.0); MEAN CORPUSCULAR VOLUME 85 fL (80-100); MONOCYTES # (AUTO) 0.4 K/uL (0.1-1.0); MONOCYTES % (AUTO) 8.2 % (2.0-9.0); NEUTROPHILS # (AUTO) 2.7 K/uL (1.8-7.7); NEUTROPHILS % (AUTO) 58.8 % (40.0-70.0); PLATELET COUNT (AUTO) 160 K/uL (150-450); RED CELL DISTRIBUTION WIDTH 13.5 % (11.5-14.5)
[2017-04-27 08:48] LABS: ALANINE AMINOTRANSFERASE 38 U/L (12-78); ALBUMIN 3.4 g/dL (3.4-5.0); ALKALINE PHOSPHATASE 79 U/L (46-116); ANION GAP 8 mmol/L (8-16); ASPARTATE AMINOTRANSFERASE 42 U/L (15-37); BILIRUBIN,TOTAL 0.3 mg/dL (0.1-1.0); CALCIUM, TOTAL 8.5 mg/dL (8.8-10.5); CARBON DIOXIDE 26 mmol/L (22-29); CHLORIDE 105 mmol/L (98-107); CHOL/HDL RATIO 3.3 (3.9-5.7); CHOLESTEROL 127 mg/dL (131-200); CREATININE 0.61 mg/dL (0.60-1.30); FREE T4 (FREE THYROXINE) 1.02 ng/dL (0.76-1.46); GLOMERULAR FILTR. RATE CALC > 60 mL/min (>60); GLUCOSE,RANDOM 111 mg/dL (70-110); HDL CHOLESTEROL 39 mg/dL (40-60); LDL CHOL (CALC.) 64 mg/dL (0-130); POTASSIUM 3.7 mmol/L (3.5-5.1); SODIUM SERUM 139 mmol/L (136-145); THYROID STIMULATING HORMONE 1.51 uIU/mL (0.36-3.74); TOTAL PROTEIN, SERUM 6.7 g/dL (6.4-8.2); TRIGLYCERIDES 118 mg/dL (15-150); UREA NITROGEN, BLOOD 14 mg/dL (7-18)
[2017-04-27] MEDS: OLANZapine 5 MG TABLET PO SCH ×2 (09:00→12:11)
[2017-04-27] MEDS: NICOTINE 21 MG/24 HOUR PATCH TD SCH ×2 (09:00→12:11)
[2017-04-27] MEDS: OMEPRAZOLE 20 MG CAPSULE PO SCH (09:00)
[2017-04-27] MEDS: DOCUSATE SODIUM 100 MG CAPSULE PO SCH (09:00)
[2017-04-27 10:07] LABS: HEMOGLOBIN A1C 5.6 % (4.5-6.2)
[2017-04-27 16:18] VITALS: BP 128/88
[2017-04-27 16:31] VITALS: BP 119/78
[2017-04-27] MEDS: ZOLPIDEM TARTRATE 10 MG TABLET PO PRN (20:54)
[2017-04-27] MEDS: OLANZapine 10 MG TABLET PO SCH (20:54)
[2017-04-28 08:10] VITALS: BP 134/81
[2017-04-28 08:36] LABS: CALCIUM, TOTAL 8.3 mg/dL (8.8-10.5); GLOMERULAR FILTR. RATE CALC > 60 mL/min (>60); GLUCOSE,RANDOM 86 mg/dL (70-110); UREA NITROGEN, BLOOD 15 mg/dL (7-18)
[2017-04-28] MEDS: OMEPRAZOLE 20 MG CAPSULE PO SCH (09:00)
[2017-04-28] MEDS: DOCUSATE SODIUM 100 MG CAPSULE PO SCH (09:00)
[2017-04-28 09:07] LABS: ANION GAP 8 mmol/L (8-16); CARBON DIOXIDE 27 mmol/L (22-29); CHLORIDE 108 mmol/L (98-107); POTASSIUM 3.9 mmol/L (3.5-5.1); SODIUM SERUM 143 mmol/L (136-145)
[2017-04-28] MEDS: OLANZapine 5 MG TABLET PO SCH (09:21)
[2017-04-28] MEDS: NICOTINE 21 MG/24 HOUR PATCH TD SCH (09:22)
[2017-04-28] MEDS: FLUoxetine HCL 20 MG CAPSULE PO SCH (12:13)
[2017-04-28 16:10] VITALS: BP 116/63
[2017-04-28] MEDS: OLANZapine 10 MG TABLET PO SCH (21:00)
[2017-04-29] MEDS: LORazepam 2 MG TABLET PO PRN ×2 (06:10→16:41)
[2017-04-29 06:33] VITALS: BP 119/73
[2017-04-29 08:48] VITALS: BP 135/89
[2017-04-29] MEDS: FLUoxetine HCL 20 MG CAPSULE PO SCH (08:53)
[2017-04-29] MEDS: OLANZapine 5 MG TABLET PO SCH (08:53)
[2017-04-29] MEDS: NICOTINE 21 MG/24 HOUR PATCH TD SCH (08:54)
[2017-04-29] MEDS: OMEPRAZOLE 20 MG CAPSULE PO SCH (09:00)
[2017-04-29] MEDS: DOCUSATE SODIUM 100 MG CAPSULE PO SCH (09:00)
[2017-04-29] MEDS ORDERED: LORazepam 2 MG/ML VIAL IM ONE (09:30)
[2017-04-29] MEDS ORDERED: DiphenhydrAMINE HCL 50 MG/ML VIAL IM ONE (09:30)
[2017-04-29] MEDS ORDERED: ZIPRASIDONE MESYLATE 20 MG/VIAL IM ONE (09:30)
[2017-04-29 16:24] VITALS: BP 140/86
[2017-04-29] MEDS: ZIPRASIDONE HCL 40 MG CAPSULE PO SCH (16:40)
[2017-04-29] MEDS: ZOLPIDEM TARTRATE 10 MG TABLET PO PRN (23:50)
[2017-04-30 04:29] VITALS: BP 119/82
[2017-04-30] MEDS: ZIPRASIDONE HCL 40 MG CAPSULE PO SCH ×2 (06:29→17:13)
[2017-04-30 08:28] VITALS: BP 126/78
[2017-04-30] MEDS ORDERED: DiphenhydrAMINE HCL 50 MG/ML VIAL IM ONE (08:30)
[2017-04-30] MEDS ORDERED: ZIPRASIDONE MESYLATE 20 MG/VIAL IM ONE (08:30)
[2017-04-30] MEDS ORDERED: LORazepam 2 MG/ML VIAL IM ONE (08:30)
[2017-04-30] MEDS: DOCUSATE SODIUM 100 MG CAPSULE PO SCH (09:00)
[2017-04-30] MEDS: OMEPRAZOLE 20 MG CAPSULE PO SCH (09:00)
[2017-04-30] MEDS: FLUoxetine HCL 20 MG CAPSULE PO SCH (09:45)
[2017-04-30] MEDS: NICOTINE 21 MG/24 HOUR PATCH TD SCH (09:46)
[2017-04-30] MEDS: LORazepam 2 MG TABLET PO PRN ×2 (10:54→17:12)
[2017-04-30 16:04] VITALS: BP 116/78
[2017-04-30] MEDS: ZOLPIDEM TARTRATE 10 MG TABLET PO PRN (21:27)
[2017-04-30] MEDS: MAG HYDROX/AL HYDROX/SIMETH ES 30 ML SUSPENSION UDCUP PO PRN (21:51)
[2017-05-01 05:54] VITALS: BP 110/75
[2017-05-01] MEDS: ZIPRASIDONE HCL 40 MG CAPSULE PO SCH ×2 (07:06→16:20)
[2017-05-01 08:04] VITALS: BP 109/60
[2017-05-01] MEDS: DOCUSATE SODIUM 100 MG CAPSULE PO SCH (08:37)
[2017-05-01] MEDS: OMEPRAZOLE 20 MG CAPSULE PO SCH (08:37)
[2017-05-01] MEDS: CHOLECALCIFEROL (VIT D3) 1,000 UNITS TABLET PO SCH ×2 (08:38→09:19)
[2017-05-01] MEDS: FLUoxetine HCL 20 MG CAPSULE PO SCH (08:38)
[2017-05-01] MEDS: NICOTINE 21 MG/24 HOUR PATCH TD SCH (08:38)
[2017-05-01] MEDS: LORazepam 2 MG TABLET PO PRN ×2 (09:19→16:20)
[2017-05-01] MEDS: MAG HYDROX/AL HYDROX/SIMETH ES 30 ML SUSPENSION UDCUP PO PRN (16:21)
[2017-05-01 16:25] VITALS: BP 112/82
[2017-05-01 19:21] VITALS: BP 116/78
[2017-05-01] MEDS: IBUPROFEN 600 MG TABLET PO PRN (19:22)
[2017-05-01 20:21] VITALS: BP 114/80
[2017-05-02 05:07] VITALS: BP 117/73
[2017-05-02] MEDS: ZIPRASIDONE HCL 40 MG CAPSULE PO SCH ×2 (06:58→16:28)
[2017-05-02] MEDS: DOCUSATE SODIUM 100 MG CAPSULE PO SCH (09:00)
[2017-05-02] MEDS: OMEPRAZOLE 20 MG CAPSULE PO SCH (09:00)
[2017-05-02] MEDS: NICOTINE 21 MG/24 HOUR PATCH TD SCH (09:30)
[2017-05-02] MEDS: CHOLECALCIFEROL (VIT D3) 1,000 UNITS TABLET PO SCH (09:30)
[2017-05-02] MEDS: FLUoxetine HCL 20 MG CAPSULE PO SCH (09:30)
[2017-05-02 16:04] VITALS: BP 118/65
[2017-05-02] MEDS: LORazepam 2 MG TABLET PO PRN (16:28)
[2017-05-03 06:03] VITALS: BP 115/60
[2017-05-03] MEDS: ZIPRASIDONE HCL 40 MG CAPSULE PO SCH ×2 (06:57→16:36)
[2017-05-03] MEDS: CHOLECALCIFEROL (VIT D3) 1,000 UNITS TABLET PO SCH (08:57)
[2017-05-03] MEDS: DOCUSATE SODIUM 100 MG CAPSULE PO SCH (08:57)
[2017-05-03] MEDS: OMEPRAZOLE 20 MG CAPSULE PO SCH (08:57)
[2017-05-03] MEDS: FLUoxetine HCL 20 MG CAPSULE PO SCH (08:57)
[2017-05-03] MEDS: NICOTINE 21 MG/24 HOUR PATCH TD SCH (08:57)
[2017-05-03] MEDS: LORazepam 2 MG TABLET PO PRN ×2 (08:57→16:36)
[2017-05-03 16:37] VITALS: BP 11/63
[2017-05-04] MEDS: ZIPRASIDONE HCL 40 MG CAPSULE PO SCH ×2 (06:37→16:57)
[2017-05-04 08:47] VITALS: BP 100/60
[2017-05-04] MEDS: OMEPRAZOLE 20 MG CAPSULE PO SCH (09:00)
[2017-05-04] MEDS: DOCUSATE SODIUM 100 MG CAPSULE PO SCH (09:00)
[2017-05-04] MEDS: CHOLECALCIFEROL (VIT D3) 1,000 UNITS TABLET PO SCH (09:27)
[2017-05-04] MEDS: NICOTINE 21 MG/24 HOUR PATCH TD SCH (09:27)
[2017-05-04] MEDS: FLUoxetine HCL 20 MG CAPSULE PO SCH (09:27)
[2017-05-04] MEDS: LORazepam 2 MG TABLET PO PRN ×2 (10:28→16:57)
[2017-05-04] MEDS: IBUPROFEN 600 MG TABLET PO PRN (10:29)
[2017-05-04 16:43] VITALS: BP 110/62
[2017-05-05] MEDS: ZIPRASIDONE HCL 40 MG CAPSULE PO SCH ×2 (06:23→17:22)
[2017-05-05 08:00] VITALS: BP 112/70
[2017-05-05] MEDS: DOCUSATE SODIUM 100 MG CAPSULE PO SCH (09:00)
[2017-05-05] MEDS: OMEPRAZOLE 20 MG CAPSULE PO SCH (09:00)
[2017-05-05] MEDS: FLUoxetine HCL 20 MG CAPSULE PO SCH (09:25)
[2017-05-05] MEDS: CHOLECALCIFEROL (VIT D3) 1,000 UNITS TABLET PO SCH (09:25)
[2017-05-05] MEDS: NICOTINE 21 MG/24 HOUR PATCH TD SCH (09:26)
[2017-05-05 17:20] VITALS: BP 151/84
[2017-05-06] MEDS: ZIPRASIDONE HCL 40 MG CAPSULE PO SCH (06:57)
[2017-05-06 08:25] VITALS: BP 104/61
[2017-05-06] MEDS: OMEPRAZOLE 20 MG CAPSULE PO SCH (09:00)
[2017-05-06] MEDS: DOCUSATE SODIUM 100 MG CAPSULE PO SCH (09:00)
[2017-05-06] MEDS: NICOTINE 21 MG/24 HOUR PATCH TD SCH (09:09)
[2017-05-06] MEDS: FLUoxetine HCL 20 MG CAPSULE PO SCH (09:09)
[2017-05-06] MEDS: CHOLECALCIFEROL (VIT D3) 1,000 UNITS TABLET PO SCH (09:09)
[2017-05-06] MEDS ORDERED: LORazepam 2 MG/ML VIAL ONE (10:49)
[2017-05-06] MEDS ORDERED: DiphenhydrAMINE HCL 50 MG/ML VIAL ONE (10:50)
[2017-05-06] MEDS ORDERED: LORazepam 2 MG/ML VIAL IM ONE (10:50)
[2017-05-06] MEDS ORDERED: ZIPRASIDONE MESYLATE 20 MG/VIAL IM ONE ×2 (10:50→10:53)
[2017-05-06] MEDS ORDERED: DiphenhydrAMINE HCL 50 MG/ML VIAL IM ONE (10:50)
[2017-05-06] MEDS: ZIPRASIDONE HCL 60 MG CAPSULE PO SCH (16:43)
[2017-05-07] MEDS: ZIPRASIDONE HCL 60 MG CAPSULE PO SCH ×2 (07:00→18:11)
[2017-05-07 09:00] VITALS: BP 112/87
[2017-05-07] MEDS: DOCUSATE SODIUM 100 MG CAPSULE PO SCH (09:00)
[2017-05-07] MEDS: CHOLECALCIFEROL (VIT D3) 1,000 UNITS TABLET PO SCH (09:11)
[2017-05-07] MEDS: OMEPRAZOLE 20 MG CAPSULE PO SCH (09:11)
[2017-05-07] MEDS: FLUoxetine HCL 20 MG CAPSULE PO SCH (09:11)
[2017-05-07] MEDS: NICOTINE 21 MG/24 HOUR PATCH TD SCH (10:06)
[2017-05-07 18:12] VITALS: BP 138/74
[2017-05-08] MEDS: LORazepam 2 MG TABLET PO PRN ×2 (01:56→23:57)
[2017-05-08] MEDS: ZOLPIDEM TARTRATE 10 MG TABLET PO PRN ×2 (01:56→21:40)
[2017-05-08] MEDS ORDERED: DiphenhydrAMINE HCL 50 MG/ML VIAL IM ONE (02:45)
[2017-05-08] MEDS ORDERED: ZIPRASIDONE MESYLATE 20 MG/VIAL IM ONE (02:45)
[2017-05-08] MEDS: ZIPRASIDONE HCL 60 MG CAPSULE PO SCH ×2 (06:52→17:24)
[2017-05-08] MEDS: FLUoxetine HCL 20 MG CAPSULE PO SCH (08:43)
[2017-05-08] MEDS: CHOLECALCIFEROL (VIT D3) 1,000 UNITS TABLET PO SCH (08:43)
[2017-05-08] MEDS: OMEPRAZOLE 20 MG CAPSULE PO SCH (08:43)
[2017-05-08] MEDS: NICOTINE 21 MG/24 HOUR PATCH TD SCH (08:46)
[2017-05-08] MEDS: DOCUSATE SODIUM 100 MG CAPSULE PO SCH (09:00)
[2017-05-08 12:54] VITALS: BP 104/62
[2017-05-08 16:32] VITALS: BP 116/72
[2017-05-09 00:13] VITALS: BP 133/89
[2017-05-09] MEDS: LORazepam 2 MG TABLET PO PRN ×2 (06:43→15:12)
[2017-05-09] MEDS ORDERED: LORazepam 2 MG/ML VIAL IM ONE (06:45)
[2017-05-09] MEDS ORDERED: DiphenhydrAMINE HCL 50 MG/ML VIAL IM ONE (06:45)
[2017-05-09] MEDS ORDERED: ZIPRASIDONE MESYLATE 20 MG/VIAL IM ONE (06:45)
[2017-05-09] MEDS: ZIPRASIDONE HCL 80 MG CAPSULE PO SCH ×2 (06:53→17:11)
[2017-05-09] MEDS: OMEPRAZOLE 20 MG CAPSULE PO SCH (08:08)
[2017-05-09] MEDS: DOCUSATE SODIUM 100 MG CAPSULE PO SCH (08:08)
[2017-05-09] MEDS: FLUoxetine HCL 20 MG CAPSULE PO SCH (08:09)
[2017-05-09] MEDS: CHOLECALCIFEROL (VIT D3) 1,000 UNITS TABLET PO SCH (08:09)
[2017-05-09] MEDS: NICOTINE 21 MG/24 HOUR PATCH TD SCH ×2 (09:00→13:55)
[2017-05-09 16:45] VITALS: BP 124/76
[2017-05-10] MEDS: ZIPRASIDONE HCL 80 MG CAPSULE PO SCH ×2 (06:29→20:43)
[2017-05-10] MEDS: DOCUSATE SODIUM 100 MG CAPSULE PO SCH (08:27)
[2017-05-10] MEDS: CHOLECALCIFEROL (VIT D3) 1,000 UNITS TABLET PO SCH (08:27)
[2017-05-10] MEDS: OMEPRAZOLE 20 MG CAPSULE PO SCH (08:27)
[2017-05-10] MEDS: NICOTINE 21 MG/24 HOUR PATCH TD SCH (08:28)
[2017-05-10] MEDS: FLUoxetine HCL 20 MG CAPSULE PO SCH (08:29)
[2017-05-10 09:12] VITALS: BP 105/57
[2017-05-10] MEDS: LORazepam 2 MG TABLET PO PRN ×2 (10:35→21:23)
[2017-05-10 20:49] VITALS: BP 112/62
[2017-05-10] MEDS: ZOLPIDEM TARTRATE 10 MG TABLET PO PRN (22:02)
[2017-05-11] MEDS: ZIPRASIDONE HCL 80 MG CAPSULE PO SCH ×2 (07:08→17:40)
[2017-05-11] MEDS: DOCUSATE SODIUM 100 MG CAPSULE PO SCH (09:00)
[2017-05-11] MEDS: CHOLECALCIFEROL (VIT D3) 1,000 UNITS TABLET PO SCH (09:24)
[2017-05-11] MEDS: FLUoxetine HCL 20 MG CAPSULE PO SCH (09:24)
[2017-05-11] MEDS: OMEPRAZOLE 20 MG CAPSULE PO SCH (09:24)
[2017-05-11] MEDS: LORazepam 2 MG TABLET PO PRN ×2 (09:26→20:54)
[2017-05-11] MEDS: NICOTINE 21 MG/24 HOUR PATCH TD SCH (09:28)
[2017-05-11] MEDS: ZOLPIDEM TARTRATE 10 MG TABLET PO PRN (20:03)
[2017-05-11 20:34] VITALS: BP 125/87
[2017-05-12] MEDS: ZIPRASIDONE HCL 80 MG CAPSULE PO SCH ×2 (06:33→16:54)
[2017-05-12] MEDS: DOCUSATE SODIUM 100 MG CAPSULE PO SCH (09:00)
[2017-05-12] MEDS: CHOLECALCIFEROL (VIT D3) 1,000 UNITS TABLET PO SCH (09:29)
[2017-05-12] MEDS: NICOTINE 21 MG/24 HOUR PATCH TD SCH (09:29)
[2017-05-12] MEDS: FLUoxetine HCL 20 MG CAPSULE PO SCH (09:29)
[2017-05-12] MEDS: OMEPRAZOLE 20 MG CAPSULE PO SCH (09:30)
[2017-05-12 17:06] VITALS: BP 127/64
[2017-05-13] MEDS: ZIPRASIDONE HCL 80 MG CAPSULE PO SCH ×2 (06:38→17:40)
[2017-05-13 08:10] VITALS: BP 104/51
[2017-05-13] MEDS: OMEPRAZOLE 20 MG CAPSULE PO SCH (08:57)
[2017-05-13] MEDS: CHOLECALCIFEROL (VIT D3) 1,000 UNITS TABLET PO SCH (08:58)
[2017-05-13] MEDS: FLUoxetine HCL 20 MG CAPSULE PO SCH (08:58)
[2017-05-13] MEDS: DOCUSATE SODIUM 100 MG CAPSULE PO SCH ×2 (08:58→09:00)
[2017-05-13] MEDS: NICOTINE 21 MG/24 HOUR PATCH TD SCH (09:00)
[2017-05-13] MEDS: LORazepam 2 MG TABLET PO PRN (09:36)
[2017-05-13] MEDS ORDERED: TUBERCULIN, PURIFIED PROTEIN DERIVATIVE 5 TU/0.1 ML SYG ID ONE (15:30)
[2017-05-13 16:34] VITALS: BP 137/74
[2017-05-14] MEDS: ZIPRASIDONE HCL 80 MG CAPSULE PO SCH ×2 (06:36→17:12)
[2017-05-14] MEDS: FLUoxetine HCL 20 MG CAPSULE PO SCH (08:25)
[2017-05-14] MEDS: CHOLECALCIFEROL (VIT D3) 1,000 UNITS TABLET PO SCH (08:25)
[2017-05-14] MEDS: OMEPRAZOLE 20 MG CAPSULE PO SCH (08:25)
[2017-05-14] MEDS: NICOTINE 21 MG/24 HOUR PATCH TD SCH (08:37)
[2017-05-14 09:22] VITALS: BP 99/55
[2017-05-14] MEDS: LORazepam 2 MG TABLET PO PRN (11:31)
[2017-05-14 18:16] VITALS: BP 112/66
[2017-05-14] MEDS: ZOLPIDEM TARTRATE 10 MG TABLET PO PRN (20:50)
[2017-05-15] MEDS: ZIPRASIDONE HCL 80 MG CAPSULE PO SCH ×2 (06:49→16:31)
[2017-05-15 08:30] VITALS: BP 121/71
[2017-05-15] MEDS: CHOLECALCIFEROL (VIT D3) 1,000 UNITS TABLET PO SCH (08:56)
[2017-05-15] MEDS: OMEPRAZOLE 20 MG CAPSULE PO SCH (08:56)
[2017-05-15] MEDS: FLUoxetine HCL 20 MG CAPSULE PO SCH (08:56)
[2017-05-15] MEDS: NICOTINE 21 MG/24 HOUR PATCH TD SCH (09:02)
[2017-05-15] MEDS: LORazepam 2 MG TABLET PO PRN (15:46)
[2017-05-15 17:15] VITALS: BP 148/72
[2017-05-16] MEDS: ZIPRASIDONE HCL 80 MG CAPSULE PO SCH ×2 (07:04→18:21)
[2017-05-16 08:00] VITALS: BP 105/61
[2017-05-16] MEDS: DOCUSATE SODIUM 100 MG CAPSULE PO PRN (09:43)
[2017-05-16] MEDS: FLUoxetine HCL 20 MG CAPSULE PO SCH (09:43)
[2017-05-16] MEDS: LORazepam 2 MG TABLET PO PRN (09:43)
[2017-05-16] MEDS: CHOLECALCIFEROL (VIT D3) 1,000 UNITS TABLET PO SCH (09:43)
[2017-05-16] MEDS: OMEPRAZOLE 20 MG CAPSULE PO SCH (09:43)
[2017-05-16] MEDS: NICOTINE 21 MG/24 HOUR PATCH TD SCH (09:44)
[2017-05-16 16:38] VITALS: BP 106/77
[2017-05-17] MEDS: ZIPRASIDONE HCL 80 MG CAPSULE PO SCH ×2 (06:48→18:37)
[2017-05-17 08:23] VITALS: BP 111/69
[2017-05-17] MEDS: OMEPRAZOLE 20 MG CAPSULE PO SCH (08:34)
[2017-05-17] MEDS: CHOLECALCIFEROL (VIT D3) 1,000 UNITS TABLET PO SCH (08:34)
[2017-05-17] MEDS: FLUoxetine HCL 20 MG CAPSULE PO SCH (08:34)
[2017-05-17] MEDS: NICOTINE 21 MG/24 HOUR PATCH TD SCH (08:35)
[2017-05-17] MEDS: LORazepam 2 MG TABLET PO PRN (15:39)
[2017-05-17 16:48] VITALS: BP 117/77
[2017-05-18] MEDS: ZIPRASIDONE HCL 80 MG CAPSULE PO SCH ×2 (07:03→16:38)
[2017-05-18 08:53] VITALS: BP 116/71
[2017-05-18] MEDS: CHOLECALCIFEROL (VIT D3) 1,000 UNITS TABLET PO SCH (09:58)
[2017-05-18] MEDS: FLUoxetine HCL 20 MG CAPSULE PO SCH (09:58)
[2017-05-18] MEDS: OMEPRAZOLE 20 MG CAPSULE PO SCH (09:58)
[2017-05-18] MEDS: NICOTINE 21 MG/24 HOUR PATCH TD SCH (09:58)
[2017-05-18] MEDS: DOCUSATE SODIUM 100 MG CAPSULE PO PRN (09:58)
[2017-05-18 16:09] VITALS: BP 108/69
[2017-05-18] MEDS: LORazepam 2 MG TABLET PO PRN ×2 (16:55→21:46)
[2017-05-18] MEDS: ZOLPIDEM TARTRATE 10 MG TABLET PO PRN (20:52)
[2017-05-19] MEDS: LORazepam 2 MG TABLET PO PRN ×2 (02:42→16:07)
[2017-05-19 02:44] VITALS: BP 100/62
[2017-05-19] MEDS: ZIPRASIDONE HCL 80 MG CAPSULE PO SCH ×2 (06:56→16:27)
[2017-05-19] MEDS: CHOLECALCIFEROL (VIT D3) 1,000 UNITS TABLET PO SCH (10:32)
[2017-05-19] MEDS: OMEPRAZOLE 20 MG CAPSULE PO SCH (10:32)
[2017-05-19] MEDS: FLUoxetine HCL 20 MG CAPSULE PO SCH (10:32)
[2017-05-19] MEDS: NICOTINE 21 MG/24 HOUR PATCH TD SCH (10:38)
[2017-05-19 11:00] VITALS: BP 117/77
[2017-05-19 17:16] VITALS: BP 116/82
[2017-05-20 06:58] LABS: HEMATOCRIT 41.1 % (36-46); HEMOGLOBIN 14.2 g/dL (12.0-16.0); MEAN CORPUSCULAR HEMOGLOBIN 29.3 pg (26.0-34.0); MEAN CORPUSCULAR HGB CONC 34.5 G/dL (31.0-37.0); MEAN CORPUSCULAR VOLUME 85 fL (80-100); PLATELET COUNT (AUTO) 193 K/uL (150-450); RED BLOOD CELL COUNT(AUTO) 4.85 MIL/uL (4.00-5.20); RED CELL DISTRIBUTION WIDTH 13.6 % (11.5-14.5)
[2017-05-20] MEDS: ZIPRASIDONE HCL 80 MG CAPSULE PO SCH ×2 (07:05→16:38)
[2017-05-20 07:31] LABS: ANION GAP 8 mmol/L (8-16); CALCIUM, TOTAL 9.1 mg/dL (8.8-10.5); CARBON DIOXIDE 30 mmol/L (22-29); CHLORIDE 103 mmol/L (98-107); CHOLESTEROL 179 mg/dL (131-200); CREATININE 0.67 mg/dL (0.60-1.30); GLOMERULAR FILTR. RATE CALC > 60 mL/min (>60); GLUCOSE,RANDOM 92 mg/dL (70-110); HDL CHOLESTEROL 45 mg/dL (40-60); LDL CHOL (CALC.) 116 mg/dL (0-130); PHOSPHORUS 4.7 mg/dL (2.5-4.9); POTASSIUM 4.2 mmol/L (3.5-5.1); SODIUM SERUM 141 mmol/L (136-145); THYROID STIMULATING HORMONE 1.99 uIU/mL (0.36-3.74); TRIGLYCERIDES 91 mg/dL (15-150); UREA NITROGEN, BLOOD 18 mg/dL (7-18)
[2017-05-20 07:54] LABS: EOSINOPHILS % (MANUAL) 1 % (1-6); LYMPHOCYTES % (MANUAL) 35 % (22-44); MONOCYTES % (MANUAL) 4 % (2-9); SEGMENTED NEUTROPHILS % 60 % (40-70)
[2017-05-20] MEDS: CHOLECALCIFEROL (VIT D3) 1,000 UNITS TABLET PO SCH (10:15)
[2017-05-20] MEDS: NICOTINE 21 MG/24 HOUR PATCH TD SCH (10:15)
[2017-05-20] MEDS: OMEPRAZOLE 20 MG CAPSULE PO SCH (10:15)
[2017-05-20] MEDS: FLUoxetine HCL 20 MG CAPSULE PO SCH (10:15)
[2017-05-20 19:55] VITALS: BP 121/79
[2017-05-20] MEDS: LORazepam 2 MG TABLET PO PRN (20:16)
[2017-05-20] MEDS: ZOLPIDEM TARTRATE 10 MG TABLET PO PRN (20:33)
[2017-05-21] MEDS: ZIPRASIDONE HCL 80 MG CAPSULE PO SCH ×3 (06:34→17:35)
[2017-05-21] MEDS: CHOLECALCIFEROL (VIT D3) 1,000 UNITS TABLET PO SCH (09:21)
[2017-05-21] MEDS: FLUoxetine HCL 20 MG CAPSULE PO SCH (09:22)
[2017-05-21] MEDS: NICOTINE 21 MG/24 HOUR PATCH TD SCH (09:22)
[2017-05-21] MEDS: DOCUSATE SODIUM 100 MG CAPSULE PO PRN (09:22)
[2017-05-21] MEDS: OMEPRAZOLE 20 MG CAPSULE PO SCH (09:22)
[2017-05-21 16:27] VITALS: BP 130/97
[2017-05-21] MEDS: LORazepam 2 MG TABLET PO PRN (18:35)
[2017-05-21] MEDS: ZOLPIDEM TARTRATE 10 MG TABLET PO PRN (21:08)
[2017-05-22] MEDS: ZIPRASIDONE HCL 80 MG CAPSULE PO SCH (07:26)
[2017-05-22] MEDS: FLUoxetine HCL 20 MG CAPSULE PO SCH (08:21)
[2017-05-22] MEDS: OMEPRAZOLE 20 MG CAPSULE PO SCH (08:21)
[2017-05-22] MEDS: NICOTINE 21 MG/24 HOUR PATCH TD SCH (08:22)
[2017-05-22] MEDS: CHOLECALCIFEROL (VIT D3) 1,000 UNITS TABLET PO SCH (08:22)
[2017-05-22] MEDS: LORazepam 2 MG TABLET PO PRN (15:00)
[2017-05-22 16:21] VITALS: BP 123/79
[2017-05-22] MEDS: PRAZOSIN HCL 1 MG CAPSULE PO SCH (20:29)
[2017-05-22] MEDS: ZOLPIDEM TARTRATE 10 MG TABLET PO PRN (22:13)
[2017-05-23] MEDS: ZIPRASIDONE HCL 80 MG CAPSULE PO SCH ×2 (06:52→17:22)
[2017-05-23 08:50] VITALS: BP 105/70
[2017-05-23] MEDS: FLUoxetine HCL 20 MG CAPSULE PO SCH (11:03)
[2017-05-23] MEDS: CHOLECALCIFEROL (VIT D3) 1,000 UNITS TABLET PO SCH (11:03)
[2017-05-23] MEDS: OMEPRAZOLE 20 MG CAPSULE PO SCH (11:03)
[2017-05-23] MEDS: NICOTINE 21 MG/24 HOUR PATCH TD SCH (11:06)
[2017-05-23] MEDS: LORazepam 2 MG TABLET PO PRN (14:05)
[2017-05-23] MEDS: PRAZOSIN HCL 1 MG CAPSULE PO SCH (20:20)
[2017-05-23] MEDS: ZOLPIDEM TARTRATE 10 MG TABLET PO PRN (21:12)
[2017-05-24] MEDS: ZIPRASIDONE HCL 80 MG CAPSULE PO SCH ×2 (06:56→16:06)
[2017-05-24] MEDS: FLUoxetine HCL 20 MG CAPSULE PO SCH (08:53)
[2017-05-24] MEDS: CHOLECALCIFEROL (VIT D3) 1,000 UNITS TABLET PO SCH (08:53)
[2017-05-24] MEDS: OMEPRAZOLE 20 MG CAPSULE PO SCH (08:53)
[2017-05-24] MEDS: NICOTINE 21 MG/24 HOUR PATCH TD SCH (08:59)
[2017-05-24] MEDS: LORazepam 2 MG TABLET PO PRN (14:43)
[2017-05-24] MEDS ORDERED: ZIPRASIDONE MESYLATE 20 MG/VIAL IM ONE (16:30)
[2017-05-24] MEDS ORDERED: LORazepam 2 MG/ML VIAL IM ONE (16:30)
[2017-05-24] MEDS ORDERED: DiphenhydrAMINE HCL 50 MG/ML VIAL IM ONE (16:30)
[2017-05-24 17:00] VITALS: BP 115/74
[2017-05-24] MEDS: PRAZOSIN HCL 1 MG CAPSULE PO SCH (21:00)
[2017-05-25] MEDS: ZIPRASIDONE HCL 80 MG CAPSULE PO SCH ×2 (06:57→17:22)
[2017-05-25] MEDS: NICOTINE 21 MG/24 HOUR PATCH TD SCH (10:36)
[2017-05-25] MEDS: CHOLECALCIFEROL (VIT D3) 1,000 UNITS TABLET PO SCH (10:36)
[2017-05-25] MEDS: FLUoxetine HCL 20 MG CAPSULE PO SCH (10:36)
[2017-05-25] MEDS: OMEPRAZOLE 20 MG CAPSULE PO SCH (10:36)
[2017-05-25] MEDS: LORazepam 2 MG TABLET PO PRN (17:21)
[2017-05-25] MEDS: PRAZOSIN HCL 1 MG CAPSULE PO SCH (20:25)
[2017-05-25] MEDS: ZOLPIDEM TARTRATE 10 MG TABLET PO PRN (21:10)
[2017-05-25] MEDS ORDERED: DiphenhydrAMINE HCL 50 MG/ML VIAL IM ONE (22:00)
[2017-05-25] MEDS ORDERED: ZIPRASIDONE MESYLATE 20 MG/VIAL IM ONE ×2 (22:00→22:03)
[2017-05-25] MEDS ORDERED: LORazepam 2 MG/ML VIAL ONE (22:00)
[2017-05-25] MEDS ORDERED: DiphenhydrAMINE HCL 50 MG/ML VIAL ONE (22:00)
[2017-05-25] MEDS ORDERED: LORazepam 2 MG/ML VIAL IM ONE (22:00)
[2017-05-26] MEDS: ZIPRASIDONE HCL 80 MG CAPSULE PO SCH ×2 (06:59→18:46)
[2017-05-26 08:00] VITALS: BP 111/68
[2017-05-26] MEDS: CHOLECALCIFEROL (VIT D3) 1,000 UNITS TABLET PO SCH (08:27)
[2017-05-26] MEDS: FLUoxetine HCL 20 MG CAPSULE PO SCH (08:27)
[2017-05-26] MEDS: OMEPRAZOLE 20 MG CAPSULE PO SCH (08:28)
[2017-05-26] MEDS: NICOTINE 21 MG/24 HOUR PATCH TD SCH (08:31)
[2017-05-26 16:00] VITALS: BP 109/67
[2017-05-26] MEDS: PRAZOSIN HCL 1 MG CAPSULE PO SCH (19:58)
[2017-05-26] MEDS: ZOLPIDEM TARTRATE 10 MG TABLET PO PRN (20:14)
[2017-05-26] MEDS: LORazepam 2 MG TABLET PO PRN (20:38)
[2017-05-27] MEDS: ZIPRASIDONE HCL 80 MG CAPSULE PO SCH ×2 (06:39→18:55)
[2017-05-27 08:34] VITALS: BP 117/65
[2017-05-27] MEDS: FLUoxetine HCL 20 MG CAPSULE PO SCH (11:26)
[2017-05-27] MEDS: OMEPRAZOLE 20 MG CAPSULE PO SCH (11:26)
[2017-05-27] MEDS: CHOLECALCIFEROL (VIT D3) 1,000 UNITS TABLET PO SCH (11:26)
[2017-05-27] MEDS: NICOTINE 21 MG/24 HOUR PATCH TD SCH (11:29)
[2017-05-27] MEDS: LORazepam 2 MG TABLET PO PRN (15:40)
[2017-05-27 18:09] VITALS: BP 128/74
[2017-05-27] MEDS: ZOLPIDEM TARTRATE 10 MG TABLET PO PRN (20:22)
[2017-05-27] MEDS: PRAZOSIN HCL 1 MG CAPSULE PO SCH (20:22)
[2017-05-28] MEDS: ZIPRASIDONE HCL 80 MG CAPSULE PO SCH ×2 (07:00→16:54)
[2017-05-28] MEDS: FLUoxetine HCL 20 MG CAPSULE PO SCH (09:09)
[2017-05-28] MEDS: CHOLECALCIFEROL (VIT D3) 1,000 UNITS TABLET PO SCH (09:09)
[2017-05-28] MEDS: OMEPRAZOLE 20 MG CAPSULE PO SCH (09:09)
[2017-05-28] MEDS: BusPIRone HCL 5 MG TABLET PO SCH ×2 (09:09→16:54)
[2017-05-28] MEDS: NICOTINE 21 MG/24 HOUR PATCH TD SCH (09:12)
[2017-05-28 17:32] VITALS: BP 125/87
[2017-05-28] MEDS: PRAZOSIN HCL 1 MG CAPSULE PO SCH (20:25)
[2017-05-28] MEDS: ZOLPIDEM TARTRATE 10 MG TABLET PO PRN (21:11)
[2017-05-28] MEDS: LORazepam 2 MG TABLET PO PRN (22:13)
[2017-05-28 22:15] VITALS: BP 125/74
[2017-05-29] MEDS: LORazepam 2 MG TABLET PO PRN ×3 (04:49→16:30)
[2017-05-29] MEDS: ZIPRASIDONE HCL 80 MG CAPSULE PO SCH ×2 (06:56→16:22)
[2017-05-29] MEDS ORDERED: DiphenhydrAMINE HCL 50 MG/ML VIAL IM ONE ×3 (07:45→16:45)
[2017-05-29] MEDS ORDERED: ZIPRASIDONE MESYLATE 20 MG/VIAL IM ONE ×2 (07:45→11:00)
[2017-05-29] MEDS: OMEPRAZOLE 20 MG CAPSULE PO SCH (07:47)
[2017-05-29] MEDS: FLUoxetine HCL 20 MG CAPSULE PO SCH (07:47)
[2017-05-29] MEDS: BusPIRone HCL 5 MG TABLET PO SCH ×2 (07:47→16:22)
[2017-05-29] MEDS: CHOLECALCIFEROL (VIT D3) 1,000 UNITS TABLET PO SCH (07:47)
[2017-05-29] MEDS: NICOTINE 21 MG/24 HOUR PATCH TD SCH (07:51)
[2017-05-29 16:30] VITALS: BP 113/78
[2017-05-29] MEDS: TraZODone HCL 50 MG TABLET PO SCH (20:29)
[2017-05-29] MEDS: PRAZOSIN HCL 1 MG CAPSULE PO SCH (20:29)
[2017-05-30 03:22] VITALS: BP 105/66
[2017-05-30] MEDS: LORazepam 2 MG TABLET PO PRN ×3 (04:37→16:00)
[2017-05-30] MEDS: ZIPRASIDONE HCL 80 MG CAPSULE PO SCH ×2 (06:49→16:00)
[2017-05-30] MEDS: FLUoxetine HCL 20 MG CAPSULE PO SCH (08:31)
[2017-05-30] MEDS: CHOLECALCIFEROL (VIT D3) 1,000 UNITS TABLET PO SCH (08:31)
[2017-05-30] MEDS: NICOTINE 21 MG/24 HOUR PATCH TD SCH (08:31)
[2017-05-30] MEDS: BusPIRone HCL 5 MG TABLET PO SCH ×2 (08:32→16:00)
[2017-05-30] MEDS: OMEPRAZOLE 20 MG CAPSULE PO SCH (08:32)
[2017-05-30 16:08] VITALS: BP 118/83
[2017-05-30] MEDS: TraZODone HCL 50 MG TABLET PO SCH (20:34)
[2017-05-30] MEDS: PRAZOSIN HCL 1 MG CAPSULE PO SCH (20:34)
[2017-05-30] MEDS: DIVALPROEX SODIUM 500 MG ER TABLET PO SCH (20:34)
[2017-05-31] MEDS: ZIPRASIDONE HCL 80 MG CAPSULE PO SCH ×2 (06:31→16:34)
[2017-05-31 06:43] LABS: HEMATOCRIT 34.8 % (36-46); MEAN CORPUSCULAR HEMOGLOBIN 29.3 pg (26.0-34.0); MEAN CORPUSCULAR HGB CONC 34.5 G/dL (31.0-37.0); MEAN CORPUSCULAR VOLUME 85 fL (80-100); PLATELET COUNT (AUTO) 166 K/uL (150-450); RED CELL DISTRIBUTION WIDTH 13.6 % (11.5-14.5)
[2017-05-31 07:09] LABS: ANION GAP 4 mmol/L (8-16); CALCIUM, TOTAL 8.5 mg/dL (8.8-10.5); CARBON DIOXIDE 30 mmol/L (22-29); CHLORIDE 103 mmol/L (98-107); CREATININE 0.68 mg/dL (0.60-1.30); GLOMERULAR FILTR. RATE CALC > 60 mL/min (>60); GLUCOSE,RANDOM 105 mg/dL (70-110); PHOSPHORUS 4.5 mg/dL (2.5-4.9); POTASSIUM 3.9 mmol/L (3.5-5.1); SODIUM SERUM 137 mmol/L (136-145); UREA NITROGEN, BLOOD 14 mg/dL (7-18)
[2017-05-31 07:12] LABS: VALPROIC ACID < 3 mcg/mL (50-100)
[2017-05-31 07:47] LABS: EOSINOPHILS % (MANUAL) 3 % (1-6); LYMPHOCYTES % (MANUAL) 54 % (22-44); MONOCYTES % (MANUAL) 4 % (2-9); SEGMENTED NEUTROPHILS % 39 % (40-70)
[2017-05-31 08:00] VITALS: BP 108/69
[2017-05-31] MEDS: CHOLECALCIFEROL (VIT D3) 1,000 UNITS TABLET PO SCH (08:02)
[2017-05-31] MEDS: NICOTINE 21 MG/24 HOUR PATCH TD SCH (08:03)
[2017-05-31] MEDS: FLUoxetine HCL 20 MG CAPSULE PO SCH (08:03)
[2017-05-31] MEDS: OMEPRAZOLE 20 MG CAPSULE PO SCH (08:03)
[2017-05-31] MEDS: BusPIRone HCL 5 MG TABLET PO SCH ×2 (08:04→16:34)
[2017-05-31] MEDS: LORazepam 2 MG TABLET PO PRN (14:45)
[2017-05-31] MEDS: IBUPROFEN 600 MG TABLET PO PRN (16:34)
[2017-05-31 16:35] VITALS: BP 119/74
[2017-05-31] MEDS: TraZODone HCL 50 MG TABLET PO SCH (20:04)
[2017-05-31] MEDS: PRAZOSIN HCL 1 MG CAPSULE PO SCH (20:04)
[2017-05-31] MEDS: DIVALPROEX SODIUM 500 MG ER TABLET PO SCH (20:04)
[2017-06-01] MEDS: ZOLPIDEM TARTRATE 10 MG TABLET PO PRN ×2 (01:32→23:39)
[2017-06-01] MEDS: LORazepam 2 MG TABLET PO PRN ×3 (01:32→23:39)
[2017-06-01] MEDS: ZIPRASIDONE HCL 80 MG CAPSULE PO SCH ×2 (06:29→17:55)
[2017-06-01] MEDS: FLUoxetine HCL 20 MG CAPSULE PO SCH (08:29)
[2017-06-01] MEDS: OMEPRAZOLE 20 MG CAPSULE PO SCH (08:30)
[2017-06-01] MEDS: CHOLECALCIFEROL (VIT D3) 1,000 UNITS TABLET PO SCH (08:30)
[2017-06-01] MEDS: NICOTINE 21 MG/24 HOUR PATCH TD SCH (08:30)
[2017-06-01] MEDS: BusPIRone HCL 5 MG TABLET PO SCH ×2 (08:30→17:55)
[2017-06-01 12:06] VITALS: BP 121/79
[2017-06-01] MEDS: IBUPROFEN 600 MG TABLET PO PRN (12:06)
[2017-06-01] MEDS ORDERED: LORazepam 2 MG/ML VIAL IM ONE (16:15)
[2017-06-01] MEDS ORDERED: ZIPRASIDONE MESYLATE 20 MG/VIAL IM ONE (16:15)
[2017-06-01] MEDS ORDERED: DiphenhydrAMINE HCL 50 MG/ML VIAL IM ONE (16:15)
[2017-06-01 17:15] VITALS: BP 118/74
[2017-06-01] MEDS: DIVALPROEX SODIUM 500 MG ER TABLET PO SCH (20:34)
[2017-06-01] MEDS: TraZODone HCL 50 MG TABLET PO SCH (20:36)
[2017-06-01] MEDS: PRAZOSIN HCL 1 MG CAPSULE PO SCH (20:37)
[2017-06-01] MEDS: OLANZapine 10 MG TABLET PO SCH (20:37)
[2017-06-02 00:50] VITALS: BP 125/76
[2017-06-02] MEDS: IBUPROFEN 600 MG TABLET PO PRN ×2 (00:50→10:32)
[2017-06-02] MEDS: ZIPRASIDONE HCL 80 MG CAPSULE PO SCH ×2 (06:37→16:33)
[2017-06-02 08:11] VITALS: BP 102/58
[2017-06-02] MEDS: DOCUSATE SODIUM 100 MG CAPSULE PO PRN (08:15)
[2017-06-02] MEDS: CHOLECALCIFEROL (VIT D3) 1,000 UNITS TABLET PO SCH (08:15)
[2017-06-02] MEDS: FLUoxetine HCL 20 MG CAPSULE PO SCH (08:15)
[2017-06-02] MEDS: OMEPRAZOLE 20 MG CAPSULE PO SCH (08:16)
[2017-06-02] MEDS: BusPIRone HCL 5 MG TABLET PO SCH ×2 (08:16→16:33)
[2017-06-02] MEDS: NICOTINE 21 MG/24 HOUR PATCH TD SCH (08:17)
[2017-06-02] MEDS: LORazepam 2 MG TABLET PO PRN ×2 (10:30→16:33)
[2017-06-02 10:33] VITALS: BP 112/62
[2017-06-02 11:30] VITALS: BP 106/68
[2017-06-02 16:46] VITALS: BP 116/71
[2017-06-02] MEDS: DIVALPROEX SODIUM 500 MG ER TABLET PO SCH (20:59)
[2017-06-02] MEDS: TraZODone HCL 50 MG TABLET PO SCH (21:02)
[2017-06-02] MEDS: OLANZapine 10 MG TABLET PO SCH (21:02)
[2017-06-02] MEDS: PRAZOSIN HCL 1 MG CAPSULE PO SCH (21:02)
[2017-06-03] MEDS: ZIPRASIDONE HCL 80 MG CAPSULE PO SCH (06:44)
[2017-06-03 08:46] VITALS: BP 113/75
[2017-06-03] MEDS: CHOLECALCIFEROL (VIT D3) 1,000 UNITS TABLET PO SCH (09:06)
[2017-06-03] MEDS: OMEPRAZOLE 20 MG CAPSULE PO SCH (09:06)
[2017-06-03] MEDS: FLUoxetine HCL 20 MG CAPSULE PO SCH (09:06)
[2017-06-03] MEDS: BusPIRone HCL 5 MG TABLET PO SCH ×2 (09:06→16:06)
[2017-06-03] MEDS: NICOTINE 21 MG/24 HOUR PATCH TD SCH (09:07)
[2017-06-03] MEDS: LORazepam 2 MG TABLET PO PRN (14:43)
[2017-06-03] MEDS: ZIPRASIDONE HCL 40 MG CAPSULE PO SCH (16:06)
[2017-06-03] MEDS: OLANZapine 10 MG TABLET PO SCH (20:13)
[2017-06-03] MEDS: TraZODone HCL 50 MG TABLET PO SCH (20:13)
[2017-06-03] MEDS: DIVALPROEX SODIUM 500 MG ER TABLET PO SCH (20:13)
[2017-06-03] MEDS: PRAZOSIN HCL 1 MG CAPSULE PO SCH (20:14)
[2017-06-04] MEDS: ZOLPIDEM TARTRATE 10 MG TABLET PO PRN (00:41)
[2017-06-04] MEDS: LORazepam 2 MG TABLET PO PRN ×4 (00:41→20:10)
[2017-06-04] MEDS: ZIPRASIDONE HCL 40 MG CAPSULE PO SCH ×2 (07:03→16:33)
[2017-06-04 08:00] VITALS: BP 109/84
[2017-06-04] MEDS: NICOTINE 21 MG/24 HOUR PATCH TD SCH (10:03)
[2017-06-04] MEDS: BusPIRone HCL 5 MG TABLET PO SCH ×2 (10:04→16:12)
[2017-06-04] MEDS: DOCUSATE SODIUM 100 MG CAPSULE PO PRN (10:04)
[2017-06-04] MEDS: FLUoxetine HCL 20 MG CAPSULE PO SCH (10:04)
[2017-06-04] MEDS: CHOLECALCIFEROL (VIT D3) 1,000 UNITS TABLET PO SCH (10:04)
[2017-06-04] MEDS: OMEPRAZOLE 20 MG CAPSULE PO SCH (10:04)
[2017-06-04] MEDS: LOPERAMIDE HCL 2 MG CAPSULE PO PRN (13:06)
[2017-06-04 16:44] VITALS: BP 118/78
[2017-06-04] MEDS: DIVALPROEX SODIUM 500 MG ER TABLET PO SCH (20:08)
[2017-06-04] MEDS: TraZODone HCL 50 MG TABLET PO SCH (20:09)
[2017-06-04] MEDS: PRAZOSIN HCL 1 MG CAPSULE PO SCH (20:09)
[2017-06-04] MEDS: OLANZapine 10 MG TABLET PO SCH (20:10)
[2017-06-05] MEDS: ZIPRASIDONE HCL 40 MG CAPSULE PO SCH ×2 (06:38→16:43)
[2017-06-05] MEDS: OMEPRAZOLE 20 MG CAPSULE PO SCH (09:00)
[2017-06-05] MEDS: CHOLECALCIFEROL (VIT D3) 1,000 UNITS TABLET PO SCH (09:00)
[2017-06-05] MEDS: FLUoxetine HCL 20 MG CAPSULE PO SCH (09:00)
[2017-06-05] MEDS: BusPIRone HCL 5 MG TABLET PO SCH ×2 (09:00→16:43)
[2017-06-05] MEDS: NICOTINE 21 MG/24 HOUR PATCH TD SCH (09:06)
[2017-06-05 09:34] VITALS: BP 124/64
[2017-06-05] MEDS: LORazepam 2 MG TABLET PO PRN (10:07)
[2017-06-05 16:45] VITALS: BP 117/70
[2017-06-05 17:45] VITALS: BP 122/72
[2017-06-05] MEDS: DIVALPROEX SODIUM 500 MG ER TABLET PO SCH (21:00)
[2017-06-05] MEDS: TraZODone HCL 50 MG TABLET PO SCH (21:25)
[2017-06-05] MEDS: PRAZOSIN HCL 1 MG CAPSULE PO SCH (21:25)
[2017-06-05] MEDS: OLANZapine 10 MG TABLET PO SCH (21:26)
[2017-06-06 05:48] VITALS: BP 135/80
[2017-06-06] MEDS: LORazepam 2 MG TABLET PO PRN ×2 (05:48→14:06)
[2017-06-06] MEDS: ZIPRASIDONE HCL 40 MG CAPSULE PO SCH ×2 (07:07→15:59)
[2017-06-06] MEDS: FLUoxetine HCL 20 MG CAPSULE PO SCH (08:08)
[2017-06-06] MEDS: BusPIRone HCL 5 MG TABLET PO SCH ×2 (08:08→15:59)
[2017-06-06] MEDS: OMEPRAZOLE 20 MG CAPSULE PO SCH (08:08)
[2017-06-06] MEDS: CHOLECALCIFEROL (VIT D3) 1,000 UNITS TABLET PO SCH (08:08)
[2017-06-06] MEDS: NICOTINE 21 MG/24 HOUR PATCH TD SCH (08:12)
[2017-06-06 08:24] VITALS: BP 144/81
[2017-06-06] MEDS ORDERED: HEPATITIS A VACCINE, INACTI [ADULT] 1,440 UNITS/ML VIAL IM ONE (08:45)
[2017-06-06] MEDS ORDERED: DiphenhydrAMINE HCL 50 MG/ML VIAL IM ONE ×2 (10:00→15:45)
[2017-06-06] MEDS ORDERED: LORazepam 2 MG/ML VIAL IM ONE ×2 (10:00→15:45)
[2017-06-06] MEDS: DIVALPROEX SODIUM 500 MG ER TABLET PO SCH (21:00)
[2017-06-06] MEDS: PRAZOSIN HCL 1 MG CAPSULE PO SCH (21:33)
[2017-06-06] MEDS: OLANZapine 10 MG TABLET PO SCH (21:33)
[2017-06-06] MEDS: TraZODone HCL 50 MG TABLET PO SCH (21:34)
[2017-06-07 00:30] VITALS: BP 119/88
[2017-06-07] MEDS: LORazepam 2 MG TABLET PO PRN ×2 (00:39→09:06)
[2017-06-07] MEDS: ZOLPIDEM TARTRATE 10 MG TABLET PO PRN (00:39)
[2017-06-07] MEDS: ZIPRASIDONE HCL 40 MG CAPSULE PO SCH ×2 (07:03→16:42)
[2017-06-07] MEDS: OMEPRAZOLE 20 MG CAPSULE PO SCH (09:06)
[2017-06-07] MEDS: FLUoxetine HCL 20 MG CAPSULE PO SCH (09:06)
[2017-06-07] MEDS: CHOLECALCIFEROL (VIT D3) 1,000 UNITS TABLET PO SCH (09:06)
[2017-06-07] MEDS: NICOTINE 21 MG/24 HOUR PATCH TD SCH (09:06)
[2017-06-07] MEDS: DOCUSATE SODIUM 100 MG CAPSULE PO PRN (09:06)
[2017-06-07] MEDS: BusPIRone HCL 5 MG TABLET PO SCH ×2 (09:07→16:41)
[2017-06-07 10:55] VITALS: BP 113/76
[2017-06-07 16:48] VITALS: BP 115/74
[2017-06-07] MEDS: DIVALPROEX SODIUM 500 MG ER TABLET PO SCH (21:00)
[2017-06-07] MEDS: PRAZOSIN HCL 1 MG CAPSULE PO SCH (21:25)
[2017-06-07] MEDS: TraZODone HCL 50 MG TABLET PO SCH (21:26)
[2017-06-07] MEDS: OLANZapine 10 MG TABLET PO SCH (21:26)
[2017-06-08 01:00] VITALS: BP 140/71
[2017-06-08] MEDS: ZOLPIDEM TARTRATE 10 MG TABLET PO PRN (01:22)
[2017-06-08] MEDS: ZIPRASIDONE HCL 40 MG CAPSULE PO SCH ×2 (06:57→17:51)
[2017-06-08] MEDS: OMEPRAZOLE 20 MG CAPSULE PO SCH (09:43)
[2017-06-08] MEDS: FLUoxetine HCL 20 MG CAPSULE PO SCH (09:43)
[2017-06-08] MEDS: CHOLECALCIFEROL (VIT D3) 1,000 UNITS TABLET PO SCH (09:43)
[2017-06-08] MEDS: BusPIRone HCL 5 MG TABLET PO SCH ×2 (09:43→17:51)
[2017-06-08] MEDS: NICOTINE 21 MG/24 HOUR PATCH TD SCH (09:44)
[2017-06-08 10:05] VITALS: BP 108/55
[2017-06-08] MEDS: IBUPROFEN 600 MG TABLET PO PRN (10:05)
[2017-06-08] MEDS: DIVALPROEX SODIUM 500 MG ER TABLET PO SCH (21:00)
[2017-06-08] MEDS: PRAZOSIN HCL 1 MG CAPSULE PO SCH (21:10)
[2017-06-08] MEDS: OLANZapine 10 MG TABLET PO SCH (21:10)
[2017-06-08] MEDS: TraZODone HCL 50 MG TABLET PO SCH (21:10)
[2017-06-09] MEDS: ZIPRASIDONE HCL 40 MG CAPSULE PO SCH (07:00)
[2017-06-09] MEDS: BusPIRone HCL 5 MG TABLET PO SCH ×2 (08:32→16:37)
[2017-06-09] MEDS: OMEPRAZOLE 20 MG CAPSULE PO SCH (08:32)
[2017-06-09] MEDS: CHOLECALCIFEROL (VIT D3) 1,000 UNITS TABLET PO SCH (08:32)
[2017-06-09] MEDS: FLUoxetine HCL 20 MG CAPSULE PO SCH (08:32)
[2017-06-09] MEDS: NICOTINE 21 MG/24 HOUR PATCH TD SCH (08:33)
[2017-06-09 12:15] VITALS: BP 136/84
[2017-06-09] MEDS: LORazepam 2 MG TABLET PO PRN (12:32)
[2017-06-09 16:37] VITALS: BP 137/87
[2017-06-09] MEDS: OLANZapine 10 MG TABLET PO SCH (20:34)
[2017-06-09] MEDS: PRAZOSIN HCL 1 MG CAPSULE PO SCH (20:34)
[2017-06-09] MEDS: TraZODone HCL 50 MG TABLET PO SCH (20:34)
[2017-06-10] MEDS: BusPIRone HCL 5 MG TABLET PO SCH ×2 (09:09→16:18)
[2017-06-10] MEDS: OMEPRAZOLE 20 MG CAPSULE PO SCH (09:09)
[2017-06-10] MEDS: FLUoxetine HCL 20 MG CAPSULE PO SCH (09:10)
[2017-06-10] MEDS: NICOTINE 21 MG/24 HOUR PATCH TD SCH (09:12)
[2017-06-10] MEDS: CHOLECALCIFEROL (VIT D3) 1,000 UNITS TABLET PO SCH (09:49)
[2017-06-10] MEDS: LORazepam 2 MG TABLET PO PRN (14:28)
[2017-06-10] MEDS: TraZODone HCL 50 MG TABLET PO SCH (22:21)
[2017-06-10] MEDS: OLANZapine 10 MG TABLET PO SCH (22:21)
[2017-06-10] MEDS: PRAZOSIN HCL 1 MG CAPSULE PO SCH (22:21)
[2017-06-11] MEDS: OMEPRAZOLE 20 MG CAPSULE PO SCH (08:51)
[2017-06-11] MEDS: BusPIRone HCL 5 MG TABLET PO SCH ×2 (08:51→17:11)
[2017-06-11] MEDS: CHOLECALCIFEROL (VIT D3) 1,000 UNITS TABLET PO SCH (08:51)
[2017-06-11] MEDS: FLUoxetine HCL 20 MG CAPSULE PO SCH (08:51)
[2017-06-11] MEDS: NICOTINE 21 MG/24 HOUR PATCH TD SCH (08:52)
[2017-06-11] MEDS: PRAZOSIN HCL 1 MG CAPSULE PO SCH (20:12)
[2017-06-11] MEDS: OLANZapine 10 MG TABLET PO SCH (20:13)
[2017-06-11] MEDS: TraZODone HCL 50 MG TABLET PO SCH (20:13)
[2017-06-11 20:58] VITALS: BP 102/77
[2017-06-12] MEDS: CHOLECALCIFEROL (VIT D3) 1,000 UNITS TABLET PO SCH (07:57)
[2017-06-12] MEDS: BusPIRone HCL 5 MG TABLET PO SCH ×3 (07:57→16:36)
[2017-06-12] MEDS: LORazepam 2 MG TABLET PO PRN ×2 (07:57→12:39)
[2017-06-12] MEDS: OMEPRAZOLE 20 MG CAPSULE PO SCH (07:57)
[2017-06-12] MEDS: FLUoxetine HCL 20 MG CAPSULE PO SCH (07:57)
[2017-06-12] MEDS: NICOTINE 21 MG/24 HOUR PATCH TD SCH (08:02)
[2017-06-12 09:22] VITALS: BP 144/84
[2017-06-12] MEDS: LOPERAMIDE HCL 2 MG CAPSULE PO PRN (09:25)
[2017-06-12 16:29] VITALS: BP 127/79
[2017-06-12] MEDS: PRAZOSIN HCL 1 MG CAPSULE PO SCH (20:38)
[2017-06-12] MEDS: TraZODone HCL 50 MG TABLET PO SCH (20:38)
[2017-06-12] MEDS: OLANZapine 10 MG TABLET PO SCH (20:38)
[2017-06-13] MEDS: CHOLECALCIFEROL (VIT D3) 1,000 UNITS TABLET PO SCH (08:48)
[2017-06-13] MEDS: NICOTINE 21 MG/24 HOUR PATCH TD SCH (08:48)
[2017-06-13] MEDS: OMEPRAZOLE 20 MG CAPSULE PO SCH (08:48)
[2017-06-13] MEDS: BusPIRone HCL 5 MG TABLET PO SCH ×3 (08:48→16:24)
[2017-06-13] MEDS: FLUoxetine HCL 20 MG CAPSULE PO SCH (08:48)
[2017-06-13] MEDS: TraZODone HCL 50 MG TABLET PO SCH (20:19)
[2017-06-13] MEDS: PRAZOSIN HCL 1 MG CAPSULE PO SCH (20:19)
[2017-06-13] MEDS: OLANZapine 10 MG TABLET PO SCH (20:19)
[2017-06-14] MEDS: CHOLECALCIFEROL (VIT D3) 1,000 UNITS TABLET PO SCH (10:52)
[2017-06-14] MEDS: OMEPRAZOLE 20 MG CAPSULE PO SCH (10:53)
[2017-06-14] MEDS: FLUoxetine HCL 20 MG CAPSULE PO SCH (10:53)
[2017-06-14] MEDS: BusPIRone HCL 5 MG TABLET PO SCH ×3 (10:53→17:08)
[2017-06-14] MEDS: NICOTINE 21 MG/24 HOUR PATCH TD SCH (11:10)
[2017-06-14] MEDS: MAG HYDROX/AL HYDROX/SIMETH ES 30 ML SUSPENSION UDCUP PO PRN (12:42)
[2017-06-14 16:00] VITALS: BP 142/84
[2017-06-14] MEDS: PRAZOSIN HCL 1 MG CAPSULE PO SCH (20:27)
[2017-06-14] MEDS: OLANZapine 10 MG TABLET PO SCH (20:27)
[2017-06-14] MEDS: TraZODone HCL 50 MG TABLET PO SCH (20:27)
[2017-06-15] MEDS: OMEPRAZOLE 20 MG CAPSULE PO SCH (08:05)
[2017-06-15] MEDS: CHOLECALCIFEROL (VIT D3) 1,000 UNITS TABLET PO SCH (08:05)
[2017-06-15] MEDS: BusPIRone HCL 5 MG TABLET PO SCH ×3 (08:05→16:25)
[2017-06-15] MEDS: FLUoxetine HCL 20 MG CAPSULE PO SCH (08:05)
[2017-06-15] MEDS: LORazepam 2 MG TABLET PO PRN ×2 (08:07→14:27)
[2017-06-15] MEDS: NICOTINE 21 MG/24 HOUR PATCH TD SCH (08:09)
[2017-06-15 09:10] VITALS: BP 98/56
[2017-06-15] MEDS ORDERED: DiphenhydrAMINE HCL 50 MG/ML VIAL IM ONE (09:15)
[2017-06-15] MEDS ORDERED: DiphenhydrAMINE HCL 50 MG/ML VIAL ONE (09:17)
[2017-06-15] MEDS: IBUPROFEN 600 MG TABLET PO PRN (11:04)
[2017-06-15 16:30] VITALS: BP 123/91
[2017-06-15] MEDS: TraZODone HCL 50 MG TABLET PO SCH (20:13)
[2017-06-15] MEDS: PRAZOSIN HCL 1 MG CAPSULE PO SCH (20:14)
[2017-06-15] MEDS: OLANZapine 10 MG TABLET PO SCH (20:14)
[2017-06-15] MEDS: LOPERAMIDE HCL 2 MG CAPSULE PO PRN (22:48)
[2017-06-16] MEDS: CHOLECALCIFEROL (VIT D3) 1,000 UNITS TABLET PO SCH (08:02)
[2017-06-16] MEDS: BusPIRone HCL 5 MG TABLET PO SCH ×3 (08:02→18:03)
[2017-06-16] MEDS: OMEPRAZOLE 20 MG CAPSULE PO SCH (08:02)
[2017-06-16] MEDS: FLUoxetine HCL 20 MG CAPSULE PO SCH (08:02)
[2017-06-16] MEDS: NICOTINE 21 MG/24 HOUR PATCH TD SCH (08:09)
[2017-06-16 08:49] VITALS: BP 147/91
[2017-06-16] MEDS: PRAZOSIN HCL 1 MG CAPSULE PO SCH (20:15)
[2017-06-16] MEDS: OLANZapine 10 MG TABLET PO SCH (20:15)
[2017-06-16] MEDS: TraZODone HCL 50 MG TABLET PO SCH (20:15)
[2017-06-17 06:07] LABS: BAND NEUTROPHILS % (MANUAL) 0 % (0-5)
[2017-06-17 06:24] LABS: HEMATOCRIT 37.1 % (36-46); HEMOGLOBIN 12.9 g/dL (12.0-16.0); MEAN CORPUSCULAR HGB CONC 34.9 G/dL (31.0-37.0); MEAN CORPUSCULAR VOLUME 86 fL (80-100); PLATELET COUNT (AUTO) 213 K/uL (150-450); RED BLOOD CELL COUNT(AUTO) 4.31 MIL/uL (4.00-5.20); RED CELL DISTRIBUTION WIDTH 13.8 % (11.5-14.5)
[2017-06-17 06:40] LABS: ANION GAP 8 mmol/L (8-16); CALCIUM, TOTAL 8.5 mg/dL (8.8-10.5); CARBON DIOXIDE 30 mmol/L (22-29); CHLORIDE 107 mmol/L (98-107); CHOL/HDL RATIO 4.1 (3.9-5.7); CHOLESTEROL 154 mg/dL (131-200); CREATININE 0.58 mg/dL (0.60-1.30); GLOMERULAR FILTR. RATE CALC > 60 mL/min (>60); GLUCOSE,RANDOM 105 mg/dL (70-110); HDL CHOLESTEROL 38 mg/dL (40-60); LDL CHOL (CALC.) 81 mg/dL (0-130); PHOSPHORUS 4.1 mg/dL (2.5-4.9); POTASSIUM 3.9 mmol/L (3.5-5.1); SODIUM SERUM 145 mmol/L (136-145); THYROID STIMULATING HORMONE 2.25 uIU/mL (0.36-3.74); TRIGLYCERIDES 175 mg/dL (15-150); UREA NITROGEN, BLOOD 13 mg/dL (7-18)
[2017-06-17 06:50] LABS: VALPROIC ACID < 3 mcg/mL (50-100)
[2017-06-17] MEDS: FLUoxetine HCL 20 MG CAPSULE PO SCH (08:44)
[2017-06-17] MEDS: BusPIRone HCL 5 MG TABLET PO SCH ×2 (08:44→12:00)
[2017-06-17] MEDS: CHOLECALCIFEROL (VIT D3) 1,000 UNITS TABLET PO SCH (08:44)
[2017-06-17 08:45] LABS: EOSINOPHILS % (MANUAL) 3 % (1-6); LYMPHOCYTES % (MANUAL) 52 % (22-44); MONOCYTES % (MANUAL) 4 % (2-9); SEGMENTED NEUTROPHILS % 41 % (40-70)
[2017-06-17] MEDS: OMEPRAZOLE 20 MG CAPSULE PO SCH (08:45)
[2017-06-17] MEDS: NICOTINE 21 MG/24 HOUR PATCH TD SCH (08:51)
[2017-06-17] MEDS ORDERED: BUSP5TAB20 PO (11:11)
[2017-06-17] MEDS ORDERED: OLAN10TA3 PO (11:12)
[2017-06-17] MEDS ORDERED: TRAZ-144 PO (11:12)
[2017-06-17] MEDS ORDERED: FLUO-191 PO (11:12)
[2017-06-17] MEDS ORDERED: VITAD1000 PO (11:13)
== END 2017-06-17 13:00 | DRG 885 ==
LOC: B3A 16:16 → 3EC 05-05 12:05
PROC: 3E0234Z Introduction of Serum, Toxoid and Vaccine into Muscle, Percutaneous Approach (ICD-10-PCS; principal; 2017-06-06)
DX: F25.0 Schizoaffective disorder, bipolar type (principal); G62.9 Polyneuropathy, unspecified; B19.20 Unspecified viral hepatitis C without hepatic coma; F10.10 Alcohol abuse, uncomplicated; F12.10 Cannabis abuse, uncomplicated; F17.200 Nicotine dependence, unspecified, uncomplicated; F41.9 Anxiety disorder, unspecified; G47.00 Insomnia, unspecified; J44.9 Chronic obstructive pulmonary disease, unspecified; K59.00 Constipation, unspecified; M79.7 Fibromyalgia; F19.10 Other psychoactive substance abuse, uncomplicated; F43.12 Post-traumatic stress disorder, chronic; F15.90 Other stimulant use, unspecified, uncomplicated; F60.3 Borderline personality disorder; Z71.51 Drug abuse counseling and surveillance of drug abuser; Z71.6 Tobacco abuse counseling; Z23 Encounter for immunization; Z79.899 Other long term (current) drug therapy; Z91.14 Patient's other noncompliance with medication regimen; Z88.8 Allergy status to other drugs, medicaments and biological substances
CPT/HCPCS: 80074; 82306; 83036; 83735; 84100; 84439; 84443; 85007; 86592; 87081; 87491; 87591; 90632; J1200; J2060; J3230; J3486